=== PATIENT | male | born 1970 | race Two or more races ===

== ENCOUNTER → 2022-11-13 09:18 | Outpatient (REF) | payer OTHER, SELFPAY ==
--- NOTE | ~2022-11-13 | NM_ITS ---
Exercise Myocardial perfusion study Indication: Abnormal EKG to evaluate for myocardial ischemia Technique: The patient was brought in for an exercise perfusion study on 11/13/2022. Patient performed exercise as per Quirino protocol and was injected 30 mCi of sestamibi was given intravenously one target HR was achieved. Images were obtained using the SPECT gamma camera interlaced with the gating device. Images were obtained in supine position. Resting perfusion study was performed on 11/15/2022. Patient was administered 30 mCi of sestamibi intravenously at rest. Images were then obtained in supine position. Images obtained with and without CT attenuation. Total DLP 120 mGy-cm. Images were processed with the software and compared side to side in short axis, horizontal long axis and vertical long axis views. Findings: The stress perfusion study showed non attenuated images show moderately reduced uptake in the apex and inferoapical wall of the LV myocardium as well as mild thinning and reduced uptake in the entire inferior wall as well as basal and mid inferolateral and basal lateral wall of the LV myocardium. Attenuation corrected images show severely reduced uptake in the apex extending into the adjacent septum and the lateral wall of the LV myocardium. The gated study shows normal LV systolic function with calculated LVEF of 55%. LV cavity is normal in size. The gated study shows normal systolic wall thickening and contraction of all segments. There is no transient ischemic dilation. Resting study shows non attenuated images show mildly reduced uptake in the inferior wall of the LV myocardium. However there is intense uptake in the apex both on attenuated as well as non attenuated corrected images. Attenuated corrected images show normal uptake in all segments of LV myocardium.. Gating at rest reveals normal systolic wall motion with ejection fraction at 57%. The findings are consistent with moderate to severe intensity apical ischemia. NM/NM monster perf SPECT rest & str Impression: 1. Apical ischemia versus possibility of apical hypertrophic cardiomyopathy 2. Gated LVEF is 55% 3. Transient ischemic dilatation not present Stress EKG is negative for ischemia
--- NOTE | 2022-11-13 09:25 | CA_ITS ---
Acquisition Time: 2022-11-13 10:21:36 Total Exercise Time: 00:09:28 Test Indications: ABNORMAL EKG, ATYPICAL CHEST PA Medications: Protocol: JOANNE Max HR: 153 BPM 91% of Pred: 168 BPM Max BP: 138/084 mmHG Max Work Load: 10.8 METS Exercise stress test exercise 9 min 28 sec of Joanne procotol achieving 91% MPHR, with mild SOB, no chest discomfort, with ventricular bigeminy in recovery, with blunted BPs baseline 130/82 max BP 138/84, without EKG changes with baseline abnormalities. Nuclear images pending. Test reviewed with Dr. Tolbert. Referred By: Thomas Johnson Overread By: Neetu Fowler
== END ==
LOC: HO.CARD 09:18
PROVIDERS: Visit Provider Family Medicine
DX: R94.31 Abnormal electrocardiogram [ECG] [EKG] (principal)
CPT/HCPCS: 78452; 93017; A9500

== ENCOUNTER → 2022-11-13 09:25 | Outpatient (BNV) | payer OTHER, SELFPAY | PROVIDERS: Visit Provider Nurse Practitioner | DX: R06.02 Shortness of breath (principal); R94.31 Abnormal electrocardiogram [ECG] [EKG] | CPT/HCPCS: 78452; 93016; 93018 ==

== ENCOUNTER → 2022-11-21 07:46 | Outpatient (REF) | payer OTHER, SELFPAY ==
--- NOTE | 2022-11-21 07:51 | CA_ITS ---
Transthoracic Echocardiogram Patient (Last, First, Middle): Domo Millan, Gender: Male Date of : 1970 Age: 52 Procedure Date: 11/21/2022 Procedure Type: Transthoracic Echocardiogram Location: OP Height: 165.1 cm Weight: 88.45 kg BSA: 1.96 m2 Heart Rate: bpm BP: 120 / 80 mmHg Sieve Repairer: RACH/FIORDALIZA Referring MD: Thomas Johnson MD Symptoms: R94.31 ABN EKG, ANTEROLATERAL ISCHEMIA MILD LVH Study Quality: Adequate with contrast ECG Rhythm: Sinus Conclusions: - The left ventricular systolic function is normal. The calculated ejection fraction is 64% by biplane method. - Pattern of left ventricular hypertrophy suggestive of apical hypertrophic cardiomyopathy. - No obvious valvular pathology seen on this study. Findings Procedure Information Contrast agent, definity, is being given per protocol without apparent complications. Left Ventricle Normal left ventricular cavity size. The left ventricular systolic function is normal. The calculated ejection fraction is 64% by biplane method. There is no evidence of regional wall motion abnormalities. Evidence suggests grade I (mild) diastolic dysfunction. Pattern of left ventricular hypertrophy suggestive of apical hypertrophic cardiomyopathy. Atria The left atrium is mildly dilated. The right atrium is normal in size. Aortic Valve There is a normal trileaflet aortic valve. There is no aortic valve stenosis. There is no aortic valve regurgitation. Mitral Valve The mitral valve appears normal. There is no mitral valve regurgitation. There is no mitral valve stenosis. Pulmonic Valve The pulmonic valve is likely normal. Tricuspid Valve There is trace tricuspid valve regurgitation. There is no evidence of pulmonary hypertension. Great Vessels The asc aorta and aortic arch are normal in size. Venous The inferior vena cava is mildly dilated and collapses greater than 50% with inspiration. Pericardium/Pleural There is no evidence of pericardial effusion. Prior Study Comparison No prior study available for comparison. Recommendations, Care & Conclusions No obvious valvular pathology seen on this study. Measurements 2D Linear Measurements IVSd: 1.00 0.6-0.9/0.6-1.0 cm LVIDd: 5.33 3.9-5.3/4.2-5.9 cm LVIDd Index: 2.72 2.4-3.2/2.2-3.1 cm/m2 LVIDs: 2.93 2.0-3.6 cm LVPWd: 1.14 0.7-1.1 cm LA Diam: 4.10 2.7-3.8/3.0-4.0 cm LAIDs Index: 2.09 1.5-2.3 cm/m2 LV Mass: 276.03 67-162/88-224 g LV Mass Index: 140.83 43-95/49-115 g/m2 LVOT Diam: 2.00 3.0+(-)1.3 cm 2D Systolic Function EF 4C: 66.40 >55% EF 2C: 62.40 >55% EF BiP: 64.10 >55% Mitral Valve MV Pk E: 0.81 MV PK A: 0.71 MV Decel Time: 218.00 E/A: 1.10 E'Lateral: 8.16 E'Medial: 4.13 E/E' Med: 19.60 E/E' Lat: 9.90 PHT: 64.00 MVA PHT: 3.44 Decel Crosby: 3.71 Aortic Valve AoV Pk Harvey: 1.71 AoV Mn Harvey: 1.12 AoV VTI: 0.35 AoV Pk Grad: 12.00 Aov Mn Grad: 6.00 DONATO Cont.VTI: 2.26 LVOT LVOT Pk Harvey: 1.26 LVOT Mn Harvey: 0.73 LVOT VTI: 0.25 LVOT Pk Grad: 6.00 LVOT Mn Grad: 3.00 LVOT Diam: 2.00 LVOT Area: 3.14 Diastolic Function MV Pk E: 0.81 MV Pk A: 0.71 E/A: 1.10 E'Medial: 4.13 E/E' Med: 19.60 E' Laterial: 8.16 E/E' Lat: 9.90 Right Ventricle TAPSE (mm): 23.30 TVS' Harvey: 10.80 Tricuspid Valve TR Pk Harvey: 2.16 TR Pk Grad: 19.00 RA Press: 8.00 RVSP: 27.00 Great Vessels Aorta Sinus of Valsalva: 3.30 2.0-3.[address] Ridge: 2.81 1.7-3.4 cm Ao Asc: 3.50 2.1-3.4 cm Ao Arch: 3.20 Updated in Other Vendor System with Status of Final Faisal Tolbert MD electronically signed on 11/21/2022 2:39:50 PM with status of Final
== END ==
LOC: HO.CARD 07:46
PROVIDERS: Visit Provider Family Medicine
DX: R94.31 Abnormal electrocardiogram [ECG] [EKG] (principal)
CPT/HCPCS: 93306; Q9957

== ENCOUNTER → 2022-11-21 07:51 | Outpatient (BNV) | payer OTHER, SELFPAY | PROVIDERS: Visit Provider Internal Medicine | DX: R94.31 Abnormal electrocardiogram [ECG] [EKG] (principal) | CPT/HCPCS: 93306 ==

== ENCOUNTER 2022-11-30 13:12 | Outpatient (AMB) | payer OTHER, SELFPAY ==
--- NOTE | 2022-11-30 13:14 | MHC.OFFVIS ---
Intake Vital Signs 11/30/22 13:15 Height 5 ft 5 in Weight 204 lb 9.423 oz BMI 34.0 BP 149/84 H Blood Pressure Location Lt brachial Position Sitting Respiration 16 Pulse 62 Pulse Source Pulse Oximeter Pulse Oximetry (%) 98 Oxygen Delivery Method Room Air Intake Visit Reasons: NPV/abnormal echo/NNeelima Godinez Intake Note: New patient with EKG Allergies No Known Allergies Allergy (Verified 11/30/22 13:18) Medication List - Last Reconciled 11/30/22 by Faisal Tolbert MD No Known Home Meds HPI HPI Comments History of Present Illness Details Georges is here for consultation regarding a recent abnormal echocardiogram and stress test. According to patient, he actually had to go for colonoscopy and at that time was told to have an abnormal EKG. It seems that that led to a stress test. During the stress test he had no issues during the exercise part. However, in the perfusion imaging thought to be either apical ischemia or hypertrophic cardiomyopathy. Following this, he had an echocardiogram that shows apical hypertrophic cardiomyopathy. Patient himself does not really have any specific symptoms. He works in [employer] and he states there are no limitations whatsoever. Sometimes he may feel fluttering sensation in the heart when he is trying to sit up or stand up. That is transient for a few seconds and then gets better. No family history of anything in this regard although he does not know too much. He thinks his father of heart issues but does not know anything further. He has siblings and children but they do not have anything known from cardiac either. [facility] Family History Father Heart problem Mother Liver problem Social History Alcohol intake: current Alcohol intake frequency: holidays/special occasions only Patient Tobacco Use Status: Never used Tobacco Review of Systems Const All systems reviewed & are unremarkable except as noted in HPI and below Reports as per HPI and Reports no additional complaints Eyes Reports as per HPI and Denies no additional complaints ENT Denies no additional complaints and Reports as per HPI Card Reports as per HPI, Reports no additional complaints, Denies acrocyanosis, Denies chest pain, Denies leg edema, Denies lightheadedness, Denies palpitations and Denies dyspnea Resp Reports as per HPI, Denies no additional complaints and Denies dyspnea GI Reports as per HPI and Denies no additional complaints Reports no additional complaints and Reports as per HPI Musc Reports no additional complaints and Reports as per HPI Skin/Breast Reports system reviewed and no additional complaints, except as documented Neuro Reports no additional complaints and Reports as per HPI Psych Reports no additional complaints and Reports as per HPI Endo Reports no additional complaints, Reports as per HPI and Denies palpitations Edis/Lymph Reports no additional complaints and Reports as per HPI Aller/Immun Reports no additional complaints and Reports as per HPI Physical Exam Vital Signs: Last Vital Signs Pulse 62 11/30/22 13:15 Resp 16 11/30/22 13:15 BP 149/84 H 11/30/22 13:15 Pulse Ox 98 11/30/22 13:15 Oxygen Delivery Method Room Air 11/30/22 13:15 BMI result Body Mass Index 34.0 Const General: comfortable and no acute distress Orientation/consciousness: patient oriented x3 HEENT Other: Unremarkable Head: Yes normal to inspection Neck Neck: Yes normal visual inspection Chest Chest palpation & inspection: normal inspection of the chest Resp Auscultation: clear to auscultation bilaterally Cardio Palpation: normal PMI Heart sounds: S1 normal heart sound present, S2 normal heart sound present, no gallops, no murmurs and no rubs GI Palpation (GI): Soft to palpation Back/Spine/Pelvis Other: unremarkable Skin General skin exam: no rashes or lesions noted Neuro General: patient oriented x3 Extrem General: Yes normal to inspection Psych Mental Status: mental status grossly normal Office Procedures EKG Details: EKG with sinus rhythm at 63/Min; inverted T-waves in V4 to V6 as well as lead 1 aVL. [id number], Complete Assessment & Plan Assessment & Plan (1) Apical variant hypertrophic cardiomyopathy: Code(s): I42.2 - Other hypertrophic cardiomyopathy Plan In the exercise stress test, able to do 10.8 METS with mild shortness of breath. Appropriate blood pressure response. In the perfusion component, thought to have had a either apical ischemia or apical hypertrophic cardiomyopathy. In the echocardiogram, there is clear suggestion of apical hypertrophic cardiomyopathy. Findings discussed with patient in great detail. Clinically, he has got absolutely no symptoms from this. Hence no specific management or medications needed. Will need to get a Holter to look for ventricular ectopy/arrhythmias. Will also get cardiac MRI for any delayed enhancement/patterns of fibrosis. Otherwise, family screening of siblings and children. Discussed. Blood pressure is slightly high but not a known hypertensive. He states home blood pressures are in the 130s and some 140s. Could have borderline hypertension. To be followed. Follow-up once these are completed. Orders: Orders ECG 3 day holter monitor Today I42.2 - Other hypertrophic cardiomyopathy, R00.2 - Palpitations MR cardiac morph fnct w con Today I42.2 - Other hypertrophic cardiomyopathy Coding Level of Care Code New Pt Level 4 (78901) Diagnoses Apical variant hypertrophic cardiomyopathy I42.2 CPT Codes EKG - CPT: 85838-[id number], Complete ([id number])
[2022-11-30 13:15] VITALS: BP 149/84; PULSE 62; RESP 16; O2SAT 98; BMI 34.0
== END 2022-11-30 13:37 | disposition home or self-care (01) ==
PROVIDERS: Visit Provider Internal Medicine
DX: I42.2 Other hypertrophic cardiomyopathy (principal)
CPT/HCPCS: 93010; 99214

== ENCOUNTER → 2022-11-30 13:12 | Outpatient (BNVA) | payer OTHER, SELFPAY | PROVIDERS: Visit Provider Internal Medicine | DX: I42.2 Other hypertrophic cardiomyopathy (principal) | CPT/HCPCS: 93005; 99212 ==

== ENCOUNTER → 2022-12-14 07:44 | Outpatient (REF) | payer OTHER, SELFPAY ==
--- NOTE | 2022-12-14 07:48 | HM_ITS ---
* Total monitoring time 3 days. * Underlying rhythm is sinus. Average ventricular rate 71/Min. Range 43 to 119/Min. * Very rare supraventricular and ventricular ectopy with minimal burden. * No significant pauses or AV blocks. * Symptoms in patient diary including palpitations, left arm pain, shortness of breath correlates with sinus rhythm and mild sinus tachycardia. MTDD
== END ==
LOC: HO.CARD 07:44
PROVIDERS: Visit Provider Internal Medicine
DX: R00.2 Palpitations (principal); I42.2 Other hypertrophic cardiomyopathy
CPT/HCPCS: 93242

== ENCOUNTER → 2022-12-14 07:48 | Outpatient (BNV) | payer OTHER, SELFPAY | PROVIDERS: Visit Provider Internal Medicine | DX: I47.10 Supraventricular tachycardia, unspecified (principal) | CPT/HCPCS: 93244 ==

== ENCOUNTER 2023-03-28 14:54 | Outpatient (REF) | payer OTHER, SELFPAY ==
[2023-03-28 16:15] LABS: Anion Gap 13 (12-20); Blood Urea Nitrogen 14 mg/dL (9-16); Carbon Dioxide 30 mmol/L (22-29); Chloride 101 mmol/L (96-108); Estimated Glomerular Filt Rate > 60; Glucose Random 123 mg/dL (60-115); Potassium 4.4 mmol/L (3.3-5.1); Sodium 140 mmol/L (135-145)
== END 2023-03-28 14:55 | disposition home or self-care (01) ==
LOC: HO.LAB 14:54
PROVIDERS: Visit Provider Internal Medicine
DX: I42.2 Other hypertrophic cardiomyopathy (principal)
CPT/HCPCS: 36415; 80048

== ENCOUNTER 2023-04-17 09:17 | Outpatient (AMB) | payer OTHER, SELFPAY ==
[2023-04-17 09:22] VITALS: BP 128/70; PULSE 68; BMI 34.1
--- NOTE | 2023-04-17 09:22 | MHC.OFFVIS ---
Intake Vital Signs 04/17/23 09:22 Height 5 ft 5 in Weight 205 lb 0.478 oz BMI 34.1 BP 128/70 Blood Pressure Location Lt brachial Position Sitting Pulse 68 Intake Visit Reasons: followup after cardiac mri Intake Note: follow up Executive Administrative Assistant Required: Yes Executive Administrative Assistant Language: Aircraft Loadmaster Superintendent Name: Caren [id number] Accompanied by: Self / Same As Patient Allergies No Known Allergies Allergy (Verified 04/17/23 09:22) Medication List - Last Reconciled 04/17/23 by Faisal Tolbert MD No Known Home Meds HPI HPI Comments History of Present Illness Details Georges returns for follow-up. Recently seen in consultation regarding abnormal echocardiogram/stress test. He had to go for colonoscopy and at that time told to have an abnormal EKG. That led to stress test and then an echocardiogram. Overall, generally feels okay but sometimes he can get short of breath with activity. Otherwise, for the most part he is feeling fine. No family history of anything in this regard although he does not know too much. He thinks his father of heart issues but does not know anything further. He has siblings and children but they do not have anything known from cardiac either. [facility] Family History Father Heart problem Mother Liver problem Social History Alcohol intake: current Alcohol intake frequency: holidays/special occasions only Patient Tobacco Use Status: Never used Tobacco Review of Systems Const All systems reviewed & are unremarkable except as noted in HPI and below Reports as per HPI and Reports no additional complaints Eyes Reports as per HPI and Denies no additional complaints ENT Denies no additional complaints and Reports as per HPI Card Reports as per HPI, Reports no additional complaints, Denies acrocyanosis, Denies chest pain, Denies leg edema, Denies lightheadedness, Denies palpitations and Denies dyspnea Resp Reports as per HPI, Denies no additional complaints and Denies dyspnea GI Reports as per HPI and Denies no additional complaints Reports no additional complaints and Reports as per HPI Musc Reports no additional complaints and Reports as per HPI Skin/Breast Reports system reviewed and no additional complaints, except as documented Neuro Reports no additional complaints and Reports as per HPI Psych Reports no additional complaints and Reports as per HPI Endo Reports no additional complaints, Reports as per HPI and Denies palpitations Edis/Lymph Reports no additional complaints and Reports as per HPI Aller/Immun Reports no additional complaints and Reports as per HPI Physical Exam Vital Signs: Last Vital Signs Pulse 68 04/17/23 09:22 BP 128/70 04/17/23 09:22 BMI result Body Mass Index 34.1 Const General: comfortable and no acute distress Orientation/consciousness: patient oriented x3 HEENT Other: Unremarkable Head: Yes normal to inspection Neck Neck: Yes normal visual inspection Chest Chest palpation & inspection: normal inspection of the chest Resp Auscultation: clear to auscultation bilaterally Cardio Palpation: normal PMI Heart sounds: S1 normal heart sound present, S2 normal heart sound present, no gallops, no murmurs and no rubs GI Palpation (GI): Soft to palpation Back/Spine/Pelvis Other: unremarkable Skin General skin exam: no rashes or lesions noted Neuro General: patient oriented x3 Extrem General: Yes normal to inspection Psych Mental Status: mental status grossly normal Assessment & Plan Assessment & Plan (1) Apical variant hypertrophic cardiomyopathy: Code(s): I42.2 - Other hypertrophic cardiomyopathy Plan Cardiac studies reviewed. EKG with sinus rhythm at 63/Min; inverted T-waves in V4 to V6 as well as lead 1 aVL. In the exercise stress test, able to do 10.8 METS with mild shortness of breath. Appropriate blood pressure response. In the perfusion component, thought to have had a either apical ischemia or apical hypertrophic cardiomyopathy. In the echocardiogram, there is clear suggestion of apical hypertrophic cardiomyopathy. In the cardiac MRI, apical segments severely thickened to 2 cm; basal interventricular septum moderately thickened to 1.5 cm. Severely increased total myocardial mass. LVEF 61% RVEF 60%. Significant delayed enhancement a 28%. Holter shows underlying sinus rhythm with an average rate of 71/Min. No significant ectopy or other arrhythmias. Findings discussed with patient. Possibly some shortness of breath with severe exertion, but no other overt symptoms. Otherwise, discussed family screening of his children and first-degree relatives. Will send him to [facility] hypertrophic cardiomyopathy center for further assessment. Follow-up after that visit. Coding Level of Care Code Est Pt Level 4 (93399) Diagnoses Apical variant hypertrophic cardiomyopathy I42.2
== END 2023-04-17 10:03 | disposition home or self-care (01) ==
PROVIDERS: PCP Physician Assistant; Visit Provider Internal Medicine
DX: I42.2 Other hypertrophic cardiomyopathy (principal)
CPT/HCPCS: 99214

== ENCOUNTER → 2023-04-17 09:17 | Outpatient (BNVA) | payer OTHER, SELFPAY | PROVIDERS: Visit Provider Internal Medicine | DX: I42.2 Other hypertrophic cardiomyopathy (principal) | CPT/HCPCS: 99212 ==

== ENCOUNTER 2023-08-14 14:21 | Outpatient (AMB) | payer OTHER, SELFPAY ==
[2023-08-14 14:36] VITALS: BP 130/64; PULSE 69; BMI 34.0
--- NOTE | 2023-08-14 14:36 | MHC.OFFVIS ---
Vital Signs 08/14/23 14:36 Height 5 ft 5 in Weight 204 lb 2.369 oz BMI 34.0 BP 130/64 Blood Pressure Location Lt brachial Position Sitting Pulse 69 Pulse Source Pulse Oximeter Intake Visit Reasons: f/up Dr Baldwin visit Hydroelectric Systems Technician Required: Yes Hydroelectric Systems Technician Name: toshia/izabela Accompanied by: Self / Same As Patient Allergies No Known Allergies Allergy (Verified 04/17/23 09:22) Medication List - Last Reconciled 08/14/23 by Faisal Tolbert MD No Known Home Meds HPI Comments Details: Georges returns for follow-up. Originally seen in consultation regarding abnormal echocardiogram/stress test. He had to go for colonoscopy and at that time told to have an abnormal EKG. That led to stress test and then an echocardiogram. Overall, generally feels okay but sometimes he can get short of breath with activity. Otherwise, for the most part he is feeling fine. No family history of anything in this regard although he does not know too much. He thinks his father of heart issues but does not know anything further. He has siblings and children but they do not have anything known from cardiac either. Overall, no new concerns since last seen. He is awaiting hypertrophic cardiomyopathy clinic appointment at [facility]. [facility] Family History Father Heart problem Mother Liver problem Social History Alcohol intake: current Alcohol intake frequency: holidays/special occasions only Patient Tobacco Use Status: Never used Tobacco Review of Systems Const Denies chills, Denies fatigue, Denies fever(s), Denies frequent falls, Denies weakness, Denies weight gain and Denies weight loss ENT Denies dizziness Card Denies chest pain, Denies leg edema, Denies lightheadedness, Denies palpitations, Denies dyspnea and Denies dyspnea on exertion Resp Denies cough, Denies dyspnea and Denies dyspnea on exertion GI Denies hematochezia Musc Denies abnormal gait, Denies muscle weakness, Denies numbness, Denies radiating pain into limb and Denies tingling Neuro Denies abnormal gait, Denies dizziness, Denies frequent falls, Denies numbness, Denies tingling and Denies weakness Endo Denies fatigue and Denies palpitations Physical Exam Vital Signs: Last Vital Signs Pulse 69 08/14/23 14:36 BP 130/64 08/14/23 14:36 BMI result Body Mass Index 34.0 Const General: comfortable and no acute distress Orientation/consciousness: patient oriented x3 HEENT Other: Unremarkable Head: Yes normal to inspection Neck Neck: Yes normal visual inspection Chest Chest palpation & inspection: normal inspection of the chest Resp Auscultation: clear to auscultation bilaterally Cardio Palpation: normal PMI Heart sounds: S1 normal heart sound present, S2 normal heart sound present, no gallops, no murmurs and no rubs GI Palpation (GI): Soft to palpation Back/Spine/Pelvis Other: unremarkable Skin General skin exam: no rashes or lesions noted Neuro General: patient oriented x3 Extrem General: Yes normal to inspection Psych Mental Status: mental status grossly normal Assessment & Plan Assessment & Plan (1) Apical variant hypertrophic cardiomyopathy: Code(s): I42.2 - Other hypertrophic cardiomyopathy Category: Medical Plan Cardiac studies reviewed. EKG with sinus rhythm at 63/Min; inverted T-waves in V4 to V6 as well as lead 1 aVL. In the exercise stress test, able to do 10.8 METS with mild shortness of breath. Appropriate blood pressure response. In the perfusion component, thought to have had either apical ischemia or apical hypertrophic cardiomyopathy. In the echocardiogram, there is clear suggestion of apical hypertrophic cardiomyopathy. In the cardiac MRI, apical segments severely thickened to 2 cm; basal interventricular septum moderately thickened to 1.5 cm. Severely increased total myocardial mass. LVEF 61% RVEF 60%. Significant delayed enhancement a 28%. Holter shows underlying sinus rhythm with an average rate of 71/Min. No significant ectopy or other arrhythmias. Overall, consistent with apical variant hypertrophic cardiomyopathy. Clinically, no concerns at this time. Family screening discussed in the past. He is awaiting appointment at the [facility]. Will get those recommendations after that. Follow-up in 6 months. Coding Level of Care Code Est Pt Level 4 (44591) Diagnoses Apical variant hypertrophic cardiomyopathy I42.2
== END 2023-08-14 15:25 | disposition home or self-care (01) ==
PROVIDERS: PCP Physician Assistant; Visit Provider Internal Medicine
DX: I42.2 Other hypertrophic cardiomyopathy (principal)
CPT/HCPCS: 99214

== ENCOUNTER → 2023-08-14 14:21 | Outpatient (BNVA) | payer OTHER, SELFPAY | PROVIDERS: PCP Physician Assistant; Visit Provider Internal Medicine | DX: I42.2 Other hypertrophic cardiomyopathy (principal) | CPT/HCPCS: 99212 ==

== ENCOUNTER 2024-02-05 12:34 | Outpatient (AMB) | payer OTHER, SELFPAY ==
--- NOTE | 2024-02-05 12:35 | MHC.OFFVIS ---
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 He originally had an EKG for preop colonoscopy which was abnormal. That led to an echocardiogram/stress test with the eventual diagnosis of apical hypertrophic cardiomyopathy. With extreme activity, he can get some shortness of breath but otherwise fine for the most part. Otherwise, he states he feels fine. Recently saw specialist in [place] for the same. With regard to family history, son was apparently diagnosed as Chagas disease in [facility] but it seems that he might actually have a similar problem but not very clear. He also underwent genetic testing at [place] and we had to get those results. [facility] Family History Father Heart problem Mother Liver problem Social History Alcohol intake: current Alcohol intake frequency: holidays/special occasions only Patient Tobacco Use Status: Never used Tobacco Review of Systems Const Denies chills, Denies fatigue, Denies fever(s), Denies frequent falls, Denies weakness, Denies weight gain and Denies weight loss ENT Denies dizziness Card Denies chest pain, Denies leg edema, Denies lightheadedness, Denies palpitations, Denies dyspnea and Denies dyspnea on exertion Resp Denies cough, Denies dyspnea and Denies dyspnea on exertion GI Denies hematochezia Musc Denies abnormal gait, Denies muscle weakness, Denies numbness, Denies radiating pain into limb and Denies tingling Neuro Denies abnormal gait, Denies dizziness, Denies frequent falls, Denies numbness, Denies tingling and Denies weakness Endo Denies fatigue and Denies palpitations Physical Exam Vital Signs: Last Vital Signs Pulse 72 02/05/24 12:36 BP 130/72 02/05/24 12:36 BMI result Body Mass Index 34.3 Const General: comfortable and no acute distress Orientation/consciousness: patient oriented x3 HEENT Other: Unremarkable Head: Yes normal to inspection Neck Neck: Yes normal visual inspection Chest Chest palpation & inspection: normal inspection of the chest Resp Auscultation: clear to auscultation bilaterally Cardio Palpation: normal PMI Heart sounds: S1 normal heart sound present, S2 normal heart sound present, no gallops, no murmurs and no rubs GI Palpation (GI): Soft to palpation Back/Spine/Pelvis Other: unremarkable Skin General skin exam: no rashes or lesions noted Neuro General: patient oriented x3 Extrem General: Yes normal to inspection Psych Mental Status: mental status grossly normal Office Procedures EKG Details: EKG with underlying sinus rhythm at 72/Min; left ventricular hypertrophy with repolarization changes [id number], Complete Assessment & Plan Assessment & Plan (1) Apical variant hypertrophic cardiomyopathy: Code(s): I42.2 - Other hypertrophic cardiomyopathy Category: Medical Plan Cardiac studies reviewed. EKG as described above. In the exercise stress test, able to do 10.8 METS with mild shortness of breath. Appropriate blood pressure response. In the perfusion component, thought to have had either apical ischemia or apical hypertrophic cardiomyopathy. In the echocardiogram, there is clear suggestion of apical hypertrophic cardiomyopathy. In the cardiac MRI, apical segments severely thickened to 2 cm; basal interventricular septum moderately thickened to 1.5 cm. Severely increased total myocardial mass. LVEF 61% RVEF 60%. Significant delayed enhancement reported at 28%. However, per specialists notes, LGE was recalculated as to be only about 7%. Holter shows underlying sinus rhythm with an average rate of 71/Min. No significant ectopy or other arrhythmias. Overall, apical variant hypertrophic cardiomyopathy. No overt clinical symptoms. Will need to get the genetics testing that he has had at [place]. No indication for ICD at this time. We will check him in about 6 months' time with a Holter monitor for any NSVT. Total time spent including review of data, counseling, documentation, coordination of care-32 minutes. Orders: Orders ECG 3 day holter monitor 6 Months I42.2 - Other hypertrophic cardiomyopathy Coding Level of Care Code Est Pt Level 4 (95861) Diagnoses Apical variant hypertrophic cardiomyopathy I42.2 CPT Codes EKG - CPT: 52546-[id number], Complete ([id number])
[2024-02-05 12:36] VITALS: BP 130/72; PULSE 72; BMI 34.3
== END 2024-02-05 13:09 | disposition home or self-care (01) ==
PROVIDERS: PCP Physician Assistant; Visit Provider Internal Medicine
DX: I42.2 Other hypertrophic cardiomyopathy (principal)
CPT/HCPCS: 93010; 99214

== ENCOUNTER → 2024-02-05 12:34 | Outpatient (BNVA) | payer OTHER, SELFPAY | PROVIDERS: PCP Physician Assistant; Visit Provider Internal Medicine | DX: I42.2 Other hypertrophic cardiomyopathy (principal) | CPT/HCPCS: 93005; 99212 ==

== ENCOUNTER → 2024-08-04 07:36 | Outpatient (REF) | payer OTHER, SELFPAY ==
--- OUTSIDE RECORDS SUMMARY | 2024-08-04 07:39 | XMS_ITS | Data Portability ---
Author Organization [facility], , [facility] Address [address] [place] [address] Care Team Providers Care Route Inspector Name Role Phone [facility] Mammographer MICHAEL MONTE Primary Care Provider Unavailabl e Assessment No assessment recorded. Plan of Treatment Reminders Order Date Submit Date Provider Last Modified By Organization Details Last Modified Time Details Appointments None recorded. Lab hepatitis A Ab panel 2023 024 [facility], [address] [place] [address], [id number], 4 13:08:08 hepatitis B surface Ab, quantitat lindsey, serum 2023 024 [facility], [address] [place] [address], [id number], 4 13:08:10 lipid panel, serum 2023 024 [facility], [address] [place] [address], [address], 4 13:29:25 hepatitis C Ab, serum [facility] [address] [place], [address], 4 13:41:01 Referral gastroent erologist referral - fatty liver, fam hx of cirrhosis from [facility] 2023 024 [facility], [address] [place], [address], 4 14:13:03 Procedures None recorded. Surgeries None recorded. Imaging None recorded. Medication Orders None recorded. Patient TargetsNo targets recorded. 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 METAB OLIC PANEL glucose 88 mg/dL 70-100 Not Available [address], [address], 05/25/2023 13:29:24 05/25/19 24 05/25/2023 COMP. METAB OLIC PANEL BUN 15 mg/dL 7-18 Not Available [address], [address], 05/25/2023 13:29:24 05/25/19 24 05/25/2023 COMP. METAB OLIC PANEL creatinine 0.9 mg/dL 0.8-1. 3 Not Available [address], [address], 05/25/2023 13:29:24 05/25/19 24 05/25/2023 COMP. METAB OLIC PANEL B/C 16.7 ratio Not Available [address], [address], 05/25/2023 13:29:24 05/25/19 24 05/25/2023 COMP. METAB OLIC PANEL GFR >=60ML /MIN mL/mi n normal >=60m L/min - Danni l or midly reduc ed <60mL /min- Decre ased kidne y funct ion <15mL /min - Kidne y failu re [facility] calcu lates estim ated Glome rular Filtr ation Rate (eGFR ) using the Chron ic Kidne y Disea se Epide miolo gy Colla borat ion (CKD- EPI) Equat ion (Linnette r et. al 2020) as recom josefina d by the Natio nal Kidne y Found ation . eGFR is based on age, serum creat inine , and sex. CKD-E PI does not calcu late eGFR by race, does not apply to child constantine (age <18 years ), and shoul d not be used in pregn wilfred. Not Available [address], [address], 05/25/2023 13:29:24 05/25/19 24 05/25/2023 COMP. METAB OLIC PANEL sodium 142 mmol/ L 136-14 5 Not Available [address], [address], 05/25/2023 13:29:24 05/25/19 24 05/25/2023 COMP. METAB OLIC PANEL potassium 4.7 mmol/ L 3.5-5. 1 Not Available [address], [address], 05/25/2023 13:29:24 05/25/19 24 05/25/2023 COMP. METAB OLIC PANEL chloride 103 mmol/ L 96-107 Not Available [address], [address], 05/25/2023 13:29:24 05/25/19 24 05/25/2023 COMP. METAB OLIC PANEL anion gap 8.1 5.0-15 .0 Not Available [address], [address], 05/25/2023 13:29:24 05/25/19 24 05/25/2023 COMP. METAB OLIC PANEL CO2 31 mmol/ L 21-32 Not Available [address], [address], 05/25/2023 13:29:24 05/25/19 24 05/25/2023 COMP. METAB OLIC PANEL calcium 8.7 mg/dL 8.5-10 .3 Not Available [address], [address], 05/25/2023 13:29:24 05/25/19 24 05/25/2023 COMP. METAB OLIC PANEL total protein 7.2 g/dL 6.4-8. 2 Not Available [address], [address], 05/25/2023 13:29:24 05/25/19 24 05/25/2023 COMP. METAB OLIC PANEL albumin 4.2 g/dL 3.4-5. 0 Not Available [address], [address], 05/25/2023 13:29:24 05/25/19 24 05/25/2023 COMP. METAB OLIC PANEL globulin 3.0 g/dL Not Available [address], [address], 05/25/2023 13:29:24 05/25/19 24 05/25/2023 COMP. METAB OLIC PANEL A/G 1.4 ratio 0.8-2. 0 Not Available [address], [address], 05/25/2023 13:29:24 05/25/19 24 05/25/2023 COMP. METAB OLIC PANEL total bilirubin 1.10 mg/dL 0.00-1 .00 high Not Available [address], [address], 05/25/2023 13:29:24 05/25/19 24 05/25/2023 COMP. METAB OLIC PANEL AST 56 U/L 0-37 high Not Available [address], [address], 05/25/2023 13:29:24 05/25/19 24 05/25/2023 COMP. METAB OLIC PANEL ALT 135 U/L 6-63 high Not Available [address], [address], 05/25/2023 13:29:24 05/25/19 24 05/25/2023 COMP. METAB OLIC PANEL alk. phos. 67 U/L 50-136 Not Available [address], [address], 05/25/2023 13:29:24 05/25/19 24 05/25/2023 LIPID PANEL cholesterol 186 mg/dL <200 mg/dl Sho able 200-2 39 mg/dl Borde rline High >240 mg/dl High Not Available [address], [address], 05/25/2023 13:29:25 05/25/19 24 05/25/2023 LIPID PANEL triglyceride s 101 mg/dL <150 mg/dL Danni l 150-1 99 mg/dL Borde rline High 200-4 99 mg/dL High >500 mg/dL Very High Not Available [address], [address], 05/25/2023 13:29:25 05/25/19 24 05/25/2023 LIPID PANEL direct HDL 45 mg/dL <40 mg/dl - Major Risk for CHD >60 mg/dl - Negat lindsey Risk for CHD Not Available [address], [address], 05/25/2023 13:29:25 05/25/19 24 05/25/2023 LDL - CALCU LATED LDL - calculated 120.8 RISK CATEG ORY LDL GOAL _ CHD or CHD Risk Equiv alent s <100 mg/dl (10-y ear risk >20%) 2+ Risk Facto rs <130 mg/dl (10-y ear risk <= 20%) 0-1 Risk Facto r? <160 mg/dl ? Almos t all peopl e with 0-1 risk facto r have a 10 year risk <10%, thus 10 year risk asses ment in peopl e with 0-1 risk facto r is not nectonya yessenia. Not Available [address], [place], [address], 05/25/2023 13:29:26 05/25/19 24 05/26/2023 HEPAT ITIS C AB W/REF L TO HCV RNA, QN, PCR hepatitis C antibody NON-RE ACTIVE non-re active normal HCV antib samia was non-r eacti ve. There is no labor atory evide nce of HCV infec tion. In most cases , no furth er actio n is requi red. Howev er, if recen t HCV expos ure is suspe cted, a test for HCV RNA (test code 12312 ) is sugge sted. For addit ional infor mattammy n lauren e refer to http: //[employer] cat n.que stdia gnost ics.c om/fa q/FAQ 22v1 (This link is being provi ded for infor matio nal/ educa david l purpo ses only. ) Not Available [facility] [address], [address], 05/26/2023 04:48:42 07/23/19 24 07/24/2023 HEPAT ITIS A AB, TOTAL hepatitis A Ab, total REACTI VE non-re active abnormal For addit ional infor lauren singh e refer to http: //[employer] cattammy n.que stdia gnost ics.c om/fa q/FAQ 202 (This link is being provi ded for infor matio nal/ educa david l purpo ses only. ) Not Available [facility] [address], [address], 07/24/2023 13:08:08 07/23/19 24 07/24/2023 HEPAT ITIS B SURFA CE AB IMMUN ITY, QN hepatitis B surface Ab immunity, qn <5 mIU/m L > or = 10 low PATIE NT DOES NOT HAVE IMMUN ITY TO HEPAT ITIS B VIRUS . For addit ional infor lauren singh refer to http: //[employer]ust[employer]er gnost [employer].c om/fa q/FAQ 105 (This link is being provi ded for infor annabella ramirez/ [facility] purpo ses only) . Not Available [facility] [address], [place], [address], 07/24/2023 13:08:10 07/23/19 24 10/12/2022 colon oscop y proce dure (PROC ) No observ ation record ed. [email or web address] Not Available 2023 08:24:41 Result Notes None recorded. Problems Name Problem SNOMED Code Status Onset Date Resolution Date Notes Provider Name and Address Organization Details Recorded Time Obstruct lindsey sleep apnea syndrome 12255935 Active 2017 Octaviano Flores PA-C [address] [place] [address], [address] , [facility] 8 08:49:22 Hypertro phic cardiomy opathy 601398258 Active 2023 Cardiac MRI 04/2023, apical variant Funmi Corona PA-C [address] [place] [address], [address] , [facility] 4 08:03:28 Obesity 978054802 Active 2023 Ray Bravo MD [address] [place] [address], , [facility] 4 12:07:27 Mixed hyperlip idemia 475949908 Active 2023 Ray Bravo MD [address] [place] [address], , [facility] 4 12:07:45 Metaboli c dysfunct ion-asso ciated steatohe patitis 178363997 Active 2023 Maribel Alexander MD [address] [place] [address], [address] , [facility] 4 16:22:44 Clinical finding Completed 200501/22/2013 Not Available [facility] 3 02:04:02 Gastrodu odenitis 087687796 Completed 200601/20/2015 Octaviano Flores PA-C [address] [place] [address], [address] , [facility] 5 15:51:24 Liver function tests outside referenc e range 213996960 Active 2005 Octaviano Flores PA-C [address] [place] [address], [address] , [facility] 5 16:01:36 Gastroes ophageal reflux disease 747769198 Completed 200501/20/2015 Octaviano Flores PA-C [address] [place] [address], [address] , [facility] 5 15:51:24 Abdomina l pain 59641404 Completed 200501/22/2013 Not Available [facility] 3 02:01:21 Chronic nonalcoh olic liver disease 51692933 Completed 200601/20/2015 Octaviano Flores PA-C [address] [place] [address], [address] , [facility] 5 15:51:24 Nausea and vomiting 37897839 Completed 200601/22/2013 Not Available [facility] 3 02:03:06 Elevated level of transami nase and lactic acid dehydrog enase 933353472 Completed 200501/20/2015 Octaviano Flores PA-C [address] [place] [address], [address] , [facility] 5 15:51:24 Gastriti s 0284029 Completed 200601/20/2015 Octaviano Flores PA-C [address] [place] [address], [address] , [facility] 5 15:51:24 Generali zed abdomina l pain 312155784 Completed 200601/22/2013 Not Available [facility] 3 02:02:06 Notes:[place] 10/2022 normal, re peat 10 years Problem Notes None recorded. Procedures Surgical History Date Name Laterality Status Provider Name and Address Organization Details Recorded Time 06/06/19 21077: Manual Therapy completed Rito Cordon DPT [address] [place], [address], [facility] 06/05/2022 08:26:02 06/06/19 23 Neuromuscular re-education completed Rito Cordon DPT [address] [place] [address], [address], [facility] 06/05/2022 08:26:03 06/06/19 Treatment and Advice completed Rito Cordon DPT [address] [place], [address], [facility] 06/05/2022 08:56:45 05/30/19 13036: Manual Therapy completed Rito Cordon DPT [address] [place], [address], [facility] 05/29/2022 10:25:20 05/30/19 23 Neuromuscular re-education completed Rito Cordon DPT [address] [place], [address], [facility] 05/29/2022 10:25:29 05/30/19 23 Treatment and Advice completed Rito Cordon DPT [address] [place] [address], [address], [facility] 05/29/2022 10:25:00 05/23/19 23 Smoking Cessation Counselling completed Rito Cordon DPT [address] [place], [address], [facility] 05/22/2022 09:13:18 05/23/19 23 Physical Activity Counselling completed Rito Cordon DPT [address] [place], [address], [facility] 05/22/2022 09:13:18 05/23/19 23 90135: PT Eval Low Complexity completed Rito Cordon DPT [address] [place], [address], [facility] 05/22/2022 09:13:18 05/23/19 23 Treatment and Advice completed Rito Cordon DPT [address] [place], [address], [facility] 05/22/2022 16:53:50 04/04/19 22 Skin Tag Removal (up to 15) completed Harmony Albarran PA-C [address] [place] [address], [address], [facility] 04/05/2021 10:44:22 03/24/19 21 prevention-annual alcohol misuse screening completed Georgia Quick [facility] 03/24/2020 15:05:39 02/12/20 14 Ganglion Injection completed Octaviano Flores PA-C [address] [place] [address], [address], [facility] 02/11/2014 15:39:38 Imaging Results None recorded. Procedure Notes None recorded. Medical Equipment None Reported. Allergies No known drug allergies Medications Name Sig Start Date Stop Date Status Note LastModified by Organization Details LastModified Time valacyclov ir 1 gram tablet TAKE 1 TABLET BY MOUTH EVERY 12 HOURS FOR 10 DAYS 11/09 completed Not Available Not Available Not Available doxycyclin e monohydrat e 100 mg capsule TAKE 1 CAPSULE BY MOUTH TWICE A DAY FOR 28 DAYS 01/24 completed Not Available Not Available Not Available ranitidine 150 mg tablet 2007 active Take 1.00 tabs twice daily Not Available Not Available Not Available Culturelle 10 billion cell capsule Take 1 capsule twice a day by oral route for 28 days. 01/24 completed Not Available Not Available Not Available bisacodyl 5 mg tablet,del ayed release TAKE 4 TABLETS BY MOUTH DIRECTED FOR 1 DAY 10/16 completed Not Available Not Available Not Available vitamin B complex 1 tab daily 03/24 completed Not Available Not Available Not Available ProAir HFA 90 mcg/actuat ion aerosol inhaler Inhale 2 puffs every 4-6 hours by inhalatio n route as needed. 05/16 completed Not Available Not Available Not Available GaviLyte-G 236 gram-22.74 gram-6.74 gram-5.86 gram oral solution USE DIRECTED FOR 1 DAY 12/11 completed Not Available Not Available Not Available Vitals Date Recorded Systolic blood pressure Diastolic blood pressure Provider Name and Address Organization Details Last Updated DateTime 2023 138 mm[Hg] 78 mm[Hg] Ray Bravo MD [address] [place] [address], [address], [facility] 2023 12:08:43 Date Recorded Body height Body mass index (BMI) Body weight Heart rate Oxygen saturation Oxygen saturation in Arterial blood by Pulse oximetry Systolic blood pressure Diastolic blood pressure Provider Name and Address Organization Details Last Updated DateTime 4 161.29 cm 36.4 kg/m2 18146.0 1 g 74 /min 98 % 98 % 142 mm[Hg] 76 mm[Hg] Imani Mendoza [facility] 4 11:18:15 Date Recorded Body height Body mass index (BMI) Body weight Heart rate Systolic blood pressure Diastolic blood pressure Systolic blood pressure Diastolic blood pressure Provider Name and Address Organization Details Last Updated DateTime 4 161.29 cm 35.4 kg/m2 75178.9 5 g 80 /min 138 mm[Hg] 72 mm[Hg] 130 mm[Hg] 72 mm[Hg] Zenaida Daniels [facility] 4 08:22:16 Social History Question Answer Notes LastModified by Organizat ion Details LastModified Time Tobacco Smoking Status Never Smoker 03/14/21 AG 04/13/22tt8/06/25MV Vanesa Abdi, BINTA null, [facility] 10/16/2022 08:09:35 Do You Wear A Helmet When Biking? No Information not available 01/20/2015 What Is Your Level Of Caffeine Consumption? Moderate Information not available 04/13/2022 How Much Tobacco Do You Chew? None Information not available 01/20/2015 What Type Of Diet Are You Following? REGULAR Information not available 05/20/2018 Education 12 Information no t available 04/24/2012 Have There Been Any Changes To Your Family Or Social Situation? No Information not available 04/13/2022 How Many Days In The Past Year Have You Had A Heavy Drinking Consumption (4+ Female, 5+ Male)? 0 Information not available 03/21/2013 Are There Any Guns Present In Your Home? No Information not available 01/20/2015 Do You Use Insect Repellent Routinely? Yes Information not available 04/13/2022 Live Alone Or With Others? With Others Partner/kailey parham Information not available 02/11/2014 Patient Has Health Care Proxy Signed And In Chart No Information not available 04/24/2012 Marital Status Domestic Partner Information not available 04/24/2012 Mosquito Repellent Used Routinely Yes Information not available 01/20/2015 What Was The Date Of Your Most Recent Tobacco Screening? 07/23/2023 05/24/23 [email or web address] Information not available 07/23/2023 How Many Children Do You Have? 1 Daughter B '03 Information not available 04/24/2012 Do You Use Your Seat Belt Or Car Seat Routinely? Yes Information not available 04/13/2022 Seat Belts Used Routinely Yes [email or web address] Information not available 01/20/2015 Are You Sexually Active? Yes Information not available 04/24/2012 Smoke Alarm In Home Yes Information not available 01/20/2015 Do You Have Smoke And Carbon Monoxide Detectors In Your Home? Yes Information not available 04/13/2022 Are You Passively Exposed To Smoke? No Information not available 04/13/2022 How Much Tobacco Do You Smoke? No Information not available 03/24/2020 What Types Of Sporting Activities Do You Participate In? No Information not available 05/20/2018 General Stress Level Low Information not available 05/20/2018 Do You Use Sunscreen Routinely? Yes Information not available 01/20/2015 How Many Years Have You Smoked Tobacco? 0 Information not available 03/24/2020 Sex: Male Functional Status Question Answer Note LastModified by Organizat ion Details LastModified Time Do you use any illicit or recreational drugs? No Information not available 04/13/2022 What is your level of alcohol consumption? Occasional 1/year. no hx abuse 03/14/21 AG, 05/24/23mh [email or web address] Information not available 2023 Do you or have you ever used smokeless tobacco? 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 Never used electronic cigarettes Information not available 03/24/2020 What is your exercise level? Occasional Information not available 04/13/2022 Mental Status None recorded. Family History Relationship Description Onset Age of this Age Resolved Age Notes LastModified by Organization Details LastModified Time Father Myocardial infarction 75 [email or web address] Not available 03/14 14:51:32 Father Cirrhosis of liver alcoho l [email or web address] Not available 07/23/2023 09:51:03 Mother Cirrhosis of liver Non-al coholi c [email or web address] Not available 07/23/2023 09:50:52 Sister Essential hypertension Not available 09:51:20 Brother Essential hypertension [email or web address] Not available 09:51:20 Medical History No medical history recorded. Immunizations Vaccine Type Date Status Note Provider Nam e and Address Organization Details Recorded Time Td(adult) unspecified formulation 6 completed Not Available [facility] 01/18/2011 05:21:29 Influenza, split virus, trivalent, PF 4 completed Not Available [facility] 03/22/2019 02:19:01 Influenza, split virus, quadrivalent, PF 5 completed Not Available [facility] 03/22/2019 02:30:31 Influenza, split virus, quadrivalent, PF 6 completed Not Available [facility] 03/22/2019 02:35:34 Tdap 6 completed Not Available [facility] 03/22/2019 02:21:10 Influenza, split virus, quadrivalent, PF 8 completed Not Available [facility] 03/22/2019 02:22:32 Influenza, split virus, quadrivalent, PF 2 completed Kinjal Gladu, WINDOWS [employer] DE[employer]OYMENT LEAD null, [facility] 03/14/2021 14:25:09 Influenza, split virus, quadrivalent, PF 3 completed MARE RIVER PA-C [address] [place] [address], [phone], [facility] 04/18/2022 18:18:14 Hep B, adult 4 completed Nidia Sanchez RN null, [facility] 07/27/2023 15:14:07 Hep B, adult 4 completed Nidia Sanchez RN null, [facility] 08/24/2023 15:03:48 Hep B, adult 4 completed Kinjalsola Fuentes, WINDOWS [employer] DEPLOYMENT LEAD null, [facility] 11/23/2023 15:40:45 COVID-19, mRNA, LNP-S, PF, 30 mcg/0.3 mL dose 1 completed Kinjal Fuentes, W[employer]OWS [employer] DE[employer]OYMENT LEAD null, [facility] 03/14/2021 14:10:34 COVID-19, mRNA, LNP-S, PF, 30 mcg/0.3 mL dose 1 completed Kinjalsola Fuentes, WINDOWS [employer] DEPLOYMENT LEAD null, [facility] 03/14/2021 14:10:42 Past Encounters Encounter ID Performer Location Encounter Start Date Encounter Closed Date Diagnosis/Indication Diagnosis SNOMED-CT Code Diagnosis ICD10 Code Diagnosis Note [id number] Jeanette BERGMAN, [facility] [place] [address] [place] [address] 12/19/2005 13:51:06 12/19/2005 16:33:50 [id number] [facility] [place] [facility] [place] [id number] 12/21/2005 07:16:32 12/21/2005 07:16:36 [id number] Jeanette BERGMAN, [facility] [place] [address] [place] [address] 02/05/2006 09:26:22 02/05/2006 10:45:37 [id number] [facility] [place] [facility] [place] [id number] 02/05/2006 09:49:45 02/05/2006 09:49:52 [id number] [facility] Radiology , [facility] [address] [place] [id number] 03/02/2006 09:36:37 03/02/2006 12:39:03 [id number] [facility] [place] [facility] [address] [place] [id number] 06/05/2006 14:26:16 06/05/2006 14:26:23 [id number] Jeanette MENEZES , [facility] [place] [address] [place] [id number] 06/05/2006 13:11:37 06/05/2006 15:14:24 [id number] MD PACHECO Maza, [facility] [place] [address] [place] [id number] 07/10/2006 14:10:06 07/11/2006 15:46:47 [id number] [facility] [place] [address] [place] [id number] 07/10/2006 14:56:48 07/10/2006 14:56:59 [id number] Jeanette MENEZES , [facility] [place] [address] [place] [address] [place] [address] 07/26/2006 14:51:17 07/26/2006 17:06:04 [id number] Octaviano Flores PA-C , [facility] [place] [address] [place] [address] [place] [id number] 12/23/2007 16:02:07 12/25/2007 11:36:42 [id number] [facility] [place] [address] [place] [id number] 12/24/2007 09:14:39 12/24/2007 09:14:54 [id number] Jaleel Nagel MD , [facility] [place] [address] [place] [id number] 04/24/2012 13:40:56 04/24/2012 16:02:05 [id number] Sania Linares MD Radiology , [address] [place] [id number] 04/25/2012 15:22:27 04/26/2012 10:02:17 [id number] Jaleel Nagel MD , [facility] [place] [address] [place] [id number] 09/10/2012 07:51:58 09/10/2012 08:26:21 [id number] Jaleel Nagel MD , [facility] [place] [address] [place] [address] 03/21/2013 07:54:07 03/21/2013 08:21:35 Adult health examination 262619378 Benign exam. Screening utd Counseling 248295104 Influenza vaccine needed 0454558005 106 Liver func tion tests outside reference range 276176806 elev last yr but then normalized . repeat LFTs and copy GI, who he sees in 2 wks. [id number] Octaviano Flores PA-C , [facility] [place] [address] [place] [address] 02/11/2014 15:08:05 02/11/2014 15:52:00 Liver function tests outside reference range 330297280 Elev in past but w/u nl. Will check this year and annually Ganglion of joint 71011519 drained/in jected. return if recurs [id number] Octaviano Flores PA-C , [facility] [address] [place] [id number] 01/20/2015 15:00:14 01/20/2015 16:08:26 Adult health examination 895725145 Z00.00 Benign exam Counseling 690265265 Z71 .9 Active or passive immunization 394212624 Z23 Liver func tion tests outside reference range 658052380 R94.5 Elev in past but w/u nl. Will check this year and annually Apnea 1342608 R06.81 noted by juan. For sleep study [id number] Jaleel Nagel MD , [facility] [place] [address] [place] [address] 11/10/2015 10:51:12 11/10/2015 11:33:25 Active or passive immunization 813498290 Z23 Pain of mu ltiple joints 47221219 M25.50 Known tick bites. Will check some labs and start abx. [id number] Vladimir Valdez MD , [facility] [place] [place] [address] [place] [address] 01/13/2016 08:54:50 01/13/2016 10:56:31 Bronchitis 69615492 J40 Patient with clinical presentati on of bronchitis in a setting of viral upper respirator y infection. No benefit of antibiotic treatment discussed. No hemodynami c instabilit y. Supportive care with ample oral hydration and rest discussed. Advised on nasal saline irrigation , decongesta nt, and NSAID use. Also recommende d OTC cough medication . Will treat with Albuterol prn. Advised to contact the clinic if no improvemen t in 3-4 days. Indication s for UC/ER use discussed. [id number] Santiago Bonds MD , [facility] [place] [place] [address] [place] [address] 01/25/2016 14:54:34 01/25/2016 15:39:15 Adult health examination 025857028 Z00.00 Benign exam Counseling 836632332 Z71 .9 Active or passive immunization 819489344 Z23 Bronchitis 83250282 J40 Mild- improving. Ok to continue albuterol prn [id number] Jaleel Nagel MD , [facility] [place] [address] [place] [address] 04/12/2017 14:41:50 04/13/2017 08:41:31 Knee pain 12990342 M25.562 seems like soft tissue contusion. no joint effusion. AE wrap/ice/i buprofen 600mg tid. Return if worsening [id number] Jaleel Nagel MD , [facility] [place] [place] [address] [place] [address] 05/16/2017 08:27:21 05/16/2017 08:58:58 Adult health examination 335010557 Z00.00 Exam benign Counseling 265353101 Z71 .9 Depression screening 171 833765 Z13.89 depression screening tool administer ed, entered into emr, scored and discussed, time greater than 7.5 minutes Active or passive immunization 129835657 Z23 Liver func tion tests outside reference range 263575601 R94.5 Elev in past but w/u nl. Will check this year and annually Knee pain 48628466 M25.5 62 seems like prepatella r inflammati on. no joint effusion Return if worsening [id number] Santiago Bonds MD , [facility] [place] [place] [address] [place] [address] 05/20/2018 08:23:16 05/20/2018 09:24:19 Adult health examination 800539347 Z00.00 Stable health. Encouraged healthy diet, regular exercise and continue to work on weight reduction. Encouraged regular dental and eye exams. Depression screening 171 150549 Z13.89 06/29. Mood has been stable. depression screening tool administer ed, entered into emr, scored and discussed, time greater than 7.5 minutes Liver func tion tests outside reference range 766170013 R94.5 Mildly Elev in past but w/u nl. Will check this year and annually Counseling 750628430 Z71 .9 Vasectomy requested 1839 [address] Bailey to discuss vasectomy. Handout given. Obstructiv e sleep apnea syndrome 08509111 G47.33 Uses CPAP intermitte ntly. Discussed the importance of regular use and risks associated with untreated PENNY. [id number] Lashell Davis . , [facility] [place] [place] [address] [place] [address] 03/24/2020 15:05:00 03/26/2020 16:29:49 Adult health examination 782921249 Z00.00 USPSTF guidelines reviewed and discussed with patient. Will update Flu shot Counseling 125566722 Z71 .9 Diet and exercise reviewed. Family and social interactio ns reviewed. Safety and injury prevention reviewed. Stress management reviewed. Depression screening 171 596333 Z13.89 depression screening tool administer ed, entered into emr, scored and discussed, time greater than 7.5 minutes Screening for alcohol abuse 053004209 Z13.39 An audit alcohol screening test was performed and scored. Patient was asked about alcohol use, advised about risks of alcohol, and personal risk was assessed. No Alcohol misuse noted. . Discussion including screening and scoring greater than 7.5 minutes [id number] Santiago Bonds MD , [facility] [place] [place] [address] [place] [address] 03/14/2021 13:39:02 03/14/2021 14:58:22 Active or passive immunization 883786696 Z23 Elevated blood-pressure reading without diagnosis of hypertension 586915369 R03.0 Discussed option of starting medication . Declines today. Will check labs. Monitor at home and bring readings to follow up in 3 weeks. Goal <130/80. If BP remains above goal would suggest starting medication . Continue to work on healthy diet and regular exercise. Family his tory of Cardiovascular disease 606506373 Z82.49 Check lipids. [id number] Santiago Bonds MD , [facility] [place] [place] [address] [place] [address] 04/04/2021 16:04:16 04/06/2021 14:17:20 Elevated blood-pressure reading without diagnosis of hypertension 291971049 R03.0 Bp just at/above goal. Goal <130/80. Prefers not to take medication . Continue to work on healthy diet and regular exercise. Encouraged to monitor at home. If BP remains closer to 140/90 would advise medication . Discussed dietary modificati ons. Multiple a xillary skin tags 362976228 D23.[address] [id number] Roland Orellana MD , [facility] [place] [place] [address] [place] [address] 12/16/2021 09:13:13 12/16/2021 11:31:46 Pain in testicle 23127948 N50.890 [id number] Lashell Davis . , [facility] [place] [place] [address] [place] [address] 04/13/2022 09:36:21 04/13/2022 11:00:40 Adult health examination 622137657 Z00.00 BP at qojt1dz [place] orderedUpd ate labsFlu shot todayDiscu ssed ShingrixDe clines covid booster shotsDenti st- needs f/u, encouraged F/u 1mo Depression screening 171 587522 Z13.31 depression screening tool administer ed, 09/28 Screening for alcohol abuse 161178542 Z13.39 Alcohol use screening tool administer ed, Screening for malignant neoplasm of colon 171698493 Z12.11 Referral for a DIRECT booked colonoscop y. This patient is a healthy ASA Class 1 or 2 patient (only mild systemic disease), or a STABLE, well controlled insulin dependent diabetic. They do not have serious cardiac disease ie DE/angiopl asty within 1 year, symptomati c CHF; renal failure with CKD 4 or 5; take Coumadin, Plavix, Aggrenox, etc. Active or passive immunization 388661764 Z23 Obstructiv e sleep apnea syndrome 13029832 G47.33 Used cpap before, but stopped, couldnt sleep with maskReferr ed back to sleep med Palpitations 64293106 R0 0.2 Palps w/i last year x4 times w/o associated symptoms, few secondsSus pect PVCs, PE normalF/u if recurs for considerat ion of monitor Elevated blood-pressure reading without diagnosis of hypertension 782821386 R03.0 Pt reports occasional elevated readings at homeIs at goal in office todayMonit or x 1 monthF/u 1mo to ensure at goalNo anti HTN medication Low back pain 886190194 M54.50 Cyst of epididymis 60328 002 N50.3 R sided4 mm epididymal cystScrota l Discomfort occasional ly [id number] Santiago Bonds MD , [facility] [place] [address] [place] [address] 05/03/2022 10:45:18 05/03/2022 11:36:26 Cervical lymphadenopathy 446617974 R59.0 he noted itchy face and a burning itchy clothes sensitivit y under the left side of the neck opening of his Steven shirt also felt fullness and stiffness left side of neck and noted a swelling under the earhe feels well no difficulti es eating , chewing, no fatigue or fever or weakness , no otic symptoms, no oral symptomson examis the large mass 1.5 x 3 inches vertically placed ovate firm , mildly tender, no rubor or calor presentund er the ear , posterior to jaw ramus , angle of the jaw and parotid and subman areas palpate normally. there is no opening or drainageor opharynx and ear are clearno other neck or thyroid or suipraclav icular masses there are streaky patches of MP redness as if shingles from manubrium left neck base on left sparing folds and a small area parietal area above left ear the rash is so typically herpetic and associated likely LN is c/w Left C4 HVZ,the associated presumptiv e Lymphadeno [athy is dramatic tho i have seen this in HSVhe is not knpwn to be immune deficient rx valtrex 1g BIDultraso und the neck massi asked him to rto should new or worsenned symptoms arrve [id number] [facility], [facility] [address] [place] [id number] 05/22/2022 09:33:49 05/23/2022 08:27:46 Low back pain 582128475 M54.50 [id number] [facility], [facility] [address] [place] [id number] 05/29/2022 09:59:35 05/29/2022 10:28:07 Low back pain 121607177 M54.50 [id number] [facility], [facility] [address] [place] [id number] 06/05/2022 08:30:22 06/05/2022 10:30:05 Low back pain 820629104 M54.50 [id number] Thomas Johnson MD , [facility] [place] [place] [address] [place] [address] 10/16/2022 08:01:30 10/16/2022 08:52:03 Electrocardiogram abnormal 281564415 R94.31 [id number] Lashell Davis . MD BERGMAN, [facility] [place] [address] [place] [address] 11/09/2022 07:55:20 11/09/2022 08:40:15 Electrocardiogram abnormal 821411278 R94.31 Nov 13 Stress testSept 19 [facility]/u scheduled thereafter red flags to ED in interim discussed Elevated blood-pressure reading without diagnosis of hypertension 945069199 R03.0 Pt reports occasional elevated readings at homeIs at goal in office todayMonit or x 1 monthNo anti HTN medication will have f/u end of month [id number] Lashell Davis . MD BERGMAN, [facility] [place] [address] [place] [address] 12/11/2022 07:58:12 12/11/2022 11:14:30 Cardiovascular stress test abnormal 749445266 R94.39 Echo- ? apical HCMStress test- apical ischemia vs apical HCM pt states Saw [place] cards- who Ordered an MRI, scheduled Jan 31, did not start any medsdo not have these records, requested per staffto ED for any red flags as again reviewed [id number] Ray Bravo MD , [facility] [place] [address] [place] [address] 2023 11:04:12 2023 12:14:06 Adult health examination 391843600 Z00.00 rec optometry appt, never had Depression screening 171 594406 Z13.31 depression screening tool administer ed Screening for alcohol abuse 429067505 Z13.39 Alcohol use screening tool administer ed--no signs depression Obstructiv e sleep apnea syndrome 53472047 G47.33 enc use of cpap regularly, can be partially resposible for BP elevation Hypertroph ic cardiomyopathy 948324754 I42.2 awaiting consult [place] next month Mixed hyperlipidemia 267 861894 E78.2 recheck, healthy eating Hepatitis C screening 41 4853755 Z11.59 no record of being tested Obesity 353094603 E66.9 continue healthy eating, exercise [id number] Radha Lisa , [facility] [place] [address] [place] [address] 07/23/2023 08:11:24 07/23/2023 10:06:56 Active or passive immunization 428216262 Z23 shingles - reminded Metabolic dysfunction-associate d steatohepatitis 628702432 K75.81 - discussed role of weight loss and low fat diet in improving liver function- does not drink - continue to avoid alcohol- will check immune status for Hep A and Hep B- referral to GI for persistent elevation, and his mother passed from MENDOZA cirrhosis- LDL in 120s, not on statin- discussed Vitamin E supplement Benign pro static hyperplasia 503231897 N40.0 - discussed decreasing caffeine intake, no liquids after dinner unless needed- double voiding, timed voiding- declines medication s for now [id number] MD PACHECO Schaefer, [facility] [place] [address] [place] [address] 07/27/2023 15:03:20 07/27/2023 15:45:44 Active or passive immunization 836272200 Z23 [id number] MD PACHECO Schaefer, [facility] [place] [address] [place] [address] 08/24/2023 14:46:22 08/24/2023 15:17:42 Active or passive immunization 497683995 Z23 [id number] Maribel Louis NP , [facility] [place] [place] [address] [place] [address] 11/23/2023 15:15:00 11/23/2023 15:40:54 Active or passive immunization 360634370 Z23 Health Concerns Section Related Observation LastModified by Organization Detai ls LastModified Time None Recorded Concern Status LastModified by Organization Details LastModified Time None Recorded Advance Directives Directive None Recorded Payers Encounter Date Sequence Insurance Name Policy Number Policy Saravia Covered Member ID Saravia Member ID Guarantor Name [address] [facility] (O) [id number] Domo A Millan [id number] Domo A Millan 07/23/2023 1 [facility] [employer] (HMO) [id number] Domo A Millan [id number] Domo A Millan 07/27/[address] [facility] (O) [id number] Domo A Millan [id number] Domo A Millan 08/24/[address] [facility] [employer] (HMO) [id number] Domo A Millan [id number] Domo A Millan 11/23/[address] [facility] (O) [id number] Domo A Millan [id number] Domo A Millan Notes Date Note Type Note Provider Name and Address Organization Details Recorded Time 05/24/19 24 text/htm l Physical Exam/MaleReported bypatient.PHAPatient is here for a Wellness Visit. He describes his health status as good. Patient's health is the same as last year.Risk Assessment and Lifestyle Change Counseling 18-50Reported bypatient.Diet:Counseled about appropriate portion size; Counseled about eating a diet low in trans and saturated fats and high in fiber, fruits and vegetables; Counseled about appropriate calcium intake and good dietary sources of calcium.; Counseled about the importance of maintaining a positive calcium balance and taking 1000 iu Vitamin D daily.; Counseled about decreasing carbohydrates; Counseled about decreasing salt in diet; Discussed the value of a Mediterranean diet, and eating more fruits and vegetables Exercise counseling:Discussed the importance of daily physical activity; Discussed the importance of weight bearing exercise Safety:Counseled about home safety including use of smoke detectors, CO detectors, keeping home water temperature less than 120; Counseled about use of seat belts; An audit alcohol screening was performed and scored. Patient was asked about alcohol use. Advised about risks of alcohol and personal risk was assessed. Patient agreed to plan and given information about available resources if needed. Discussion including screening and scoring greater than 7.5 minutes.Risk Assessment and Lifestyle Change Counseling 50-64Reported bypatient.Coronary Artery Disease Risk Assessment:Family History of Coronary Artery Disease; No personal history of diabetes; No history of peripheral vascular disease, AAA, or carotid disease; No personal history of coronary artery disease Colon Cancer Risk Assessment:No family history of colon polyps or cancer; No history of adenomatous colon polyps Lung Cancer Risk Assessment:Never smoked; No asbestos exposure Fracture Risk Assessment:No unexplained fracture Cognitive/Behavioral Risk Assessment:No personal history of mental illness;Family history of mental illness Safety Risk Assessment:No evidence of abuse/neglect Diet:Counseled about eating a diet low in trans and saturated fats and high in fiber, fruits and vegetables Exercise counseling:Discussed the importance of daily physical activity BP- sometimes high--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 apical ischemia. Per MRI apical cardiomyopathy. Pending appt in [place] for consult. 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
== END ==
LOC: HO.CARD 07:36
PROVIDERS: Visit Provider Internal Medicine
DX: I42.2 Other hypertrophic cardiomyopathy (principal)
CPT/HCPCS: 93242

== ENCOUNTER → 2024-08-04 07:40 | Outpatient (BNV) | payer OTHER, SELFPAY | PROVIDERS: Visit Provider Internal Medicine Cardiovascular Disease | DX: I47.10 Supraventricular tachycardia, unspecified (principal) | CPT/HCPCS: 93244 ==

== ENCOUNTER 2024-08-14 14:02 | Outpatient (AMB) | payer OTHER, SELFPAY ==
--- NOTE | 2024-08-14 14:30 | MHC.OFFVIS ---
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 He originally had an EKG for preop colonoscopy which was abnormal. That led to an echocardiogram/stress test with the eventual diagnosis of apical hypertrophic cardiomyopathy. With extreme activity, he can get some shortness of breath but otherwise fine for the most part. 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 He was seen at the hypertrophic cardiomyopathy center in [place] last year. No specific interventions recommended. With regard to family history, son was apparently diagnosed as Chagas disease in [facility] [place] but it seems that he might actually have a similar problem, but not very clear. [facility] Family History Father Heart problem Mother Liver problem Social History Alcohol intake: current Alcohol intake frequency: holidays/special occasions only Patient Tobacco Use Status: Never used Tobacco Review of Systems Const Denies chills, Denies fatigue, Denies fever(s), Denies frequent falls, Denies weakness, Denies weight gain and Denies weight loss ENT Denies dizziness Card Denies chest pain, Denies leg edema, Denies lightheadedness, Denies palpitations, Denies dyspnea and Denies dyspnea on exertion Resp Denies cough, Denies dyspnea and Denies dyspnea on exertion GI Denies hematochezia Musc Denies abnormal gait, Denies muscle weakness, Denies numbness, Denies radiating pain into limb and Denies tingling Neuro Denies abnormal gait, Denies dizziness, Denies frequent falls, Denies numbness, Denies tingling and Denies weakness Endo Denies fatigue and Denies palpitations Physical Exam Vital Signs: Last Vital Signs Pulse 90 08/14/24 14:32 BP 130/64 08/14/24 14:32 BMI result Body Mass Index 35.0 Const General: comfortable and no acute distress Orientation/consciousness: patient oriented x3 HEENT Other: Unremarkable Head: Yes normal to inspection Neck Neck: Yes normal visual inspection Chest Chest palpation & inspection: normal inspection of the chest Resp Auscultation: clear to auscultation bilaterally Cardio Palpation: normal PMI Heart sounds: S1 normal heart sound present, S2 normal heart sound present, no gallops, Murmur heart sound present systolic II/ and no rubs GI Palpation (GI): Soft to palpation Back/Spine/Pelvis Other: unremarkable Skin General skin exam: no rashes or lesions noted Neuro General: patient oriented x3 Extrem General: Yes normal to inspection Psych Mental Status: mental status grossly normal Assessment & Plan Assessment & Plan (1) Apical variant hypertrophic cardiomyopathy: Code(s): I42.2 - Other hypertrophic cardiomyopathy Category: Medical Plan Cardiac studies reviewed. EKG shows sinus rhythm at 72/Min with somewhat diffuse T inversions but most prominent in the anterior leads. In the exercise stress test, able to do 10.8 METS with mild shortness of breath. Appropriate blood pressure response. In the perfusion component, thought to have had either apical ischemia or apical hypertrophic cardiomyopathy. In the echocardiogram, there is clear suggestion of apical hypertrophic cardiomyopathy. In the cardiac MRI, apical segments severely thickened to 2 cm; basal interventricular septum moderately thickened to 1.5 cm. Severely increased total myocardial mass. LVEF 61% RVEF 60%. Significant delayed enhancement reported at 28%. However, per specialists notes, LGE was recalculated as to be only about 7%. Holter shows underlying sinus rhythm with an average rate of 71/Min. No significant ectopy or other arrhythmias. Overall, apical variant hypertrophic cardiomyopathy. No overt clinical symptoms. Hence no specific medications. No indication for ICD either. He has had genetic screening done at [place] and that shows variant of unknown significance. Otherwise, no known clinically actionable alterations were detected. Recommendation [place] was to repeat an MRI in 3-5 years. Annual ambulatory monitoring, looking for NSVT. Intense physical activity to be avoided. We will plan on following up in one year. In the interim, he will call with concerns. Total time spent including review of data, counseling, documentation, coordination of care-31 minutes. Coding Level of Care Code Est Pt Level 4 (11624) Complex EM visit Add On G2211 Diagnoses Apical variant hypertrophic cardiomyopathy I42.2
[2024-08-14 14:32] VITALS: BP 130/64; PULSE 90; BMI 35.0
--- OUTSIDE RECORDS SUMMARY | 2024-08-14 16:33 | XMS_ITS | Data Portability ---
Author Organization [facility], , [facility] Address [address] [place] [address] Care Team Providers Care Software Designer Name Role Phone [facility] Strip Machine Operator MICHAEL MONTE Primary Care Provider Unavailabl e Assessment No assessment recorded. Plan of Treatment Reminders Order Date Submit Date Provider Last Modified By Organization Details Last Modified Time Details Appointments None recorded. Lab hepatitis A Ab panel 2023 024 [facility], [address] [place] [address], [address], 4 13:08:08 hepatitis B surface Ab, quantitat lindsey, serum 2023 024 [facility], [address] [place] [address], [address], 4 13:08:10 lipid panel, serum 2023 024 [facility], [address] [place] [address], [address], 4 13:29:25 hepatitis C Ab, serum [facility] [address] [place] [address], [address], 4 13:41:01 Referral gastroent erologist referral - fatty liver, fam hx of cirrhosis from [facility] 2023 024 [facility], [address] [place], [address], 4 14:13:03 Procedures None recorded. Surgeries None recorded. Imaging None recorded. Medication Orders None recorded. Patient TargetsNo targets recorded. Patient Instructions Encounter Date Encounter Id Patient Instructions Last Modified By Organization Details Last Modified Time 2023 [id number] Well Visit 50 to 65: Care Instructions [email or web address] Not available 2023 12:11:52 Reason for Referral Proposal Development Manager Referral for Metabolic dysfunction-associated steatohepatitis fatty liver, fam hx of cirrhosis from [facility] Referring Physician: Funmi Corona, Family Medicine, Encounter Date: 07/23/2023 Results Created Date Observation Date Name Description Value Unit Range Abnormal Flag Note LastModifiedBy Organization Detail LastModifiedTime 05/25/19 24 05/25/2023 COMP. METAB OLIC PANEL glucose 88 mg/dL 70-100 Not Available [address], [address], 05/25/2023 13:29:24 05/25/19 24 05/25/2023 COMP. METAB OLIC PANEL BUN 15 mg/dL 7-18 Not Available [address], [address], 05/25/2023 13:29:24 05/25/19 24 05/25/2023 COMP. METAB OLIC PANEL creatinine 0.9 mg/dL 0.8-1. 3 Not Available [address], [address], 05/25/2023 13:29:24 05/25/19 24 05/25/2023 COMP. METAB OLIC PANEL B/C 16.7 ratio Not Available [address], [address], 05/25/2023 13:29:24 05/25/19 24 05/25/2023 COMP. METAB [...] be used in pregn wilfred. Not Available [address], [address], 05/25/2023 13:29:24 05/25/19 24 05/25/2023 COMP. METAB OLIC PANEL sodium 142 mmol/ L 136-14 5 Not Available [address], [address], 05/25/2023 13:29:24 05/25/19 24 05/25/2023 COMP. METAB OLIC PANEL potassium 4.7 mmol/ L 3.5-5. 1 Not Available [address], [address], 05/25/2023 13:29:24 05/25/19 24 05/25/2023 COMP. METAB OLIC PANEL chloride 103 mmol/ L 96-107 Not Available [address], [address], 05/25/2023 13:29:24 05/25/19 24 05/25/2023 COMP. METAB OLIC PANEL anion gap 8.1 5.0-15 .0 Not Available [address], [address], 05/25/2023 13:29:24 05/25/19 24 05/25/2023 COMP. METAB OLIC PANEL CO2 31 mmol/ L 21-32 Not Available [address], [address], 05/25/2023 13:29:24 05/25/19 24 05/25/2023 COMP. METAB OLIC PANEL calcium 8.7 mg/dL 8.5-10 .3 Not Available [address], [address], 05/25/2023 13:29:24 05/25/19 24 05/25/2023 COMP. METAB OLIC PANEL total protein 7.2 g/dL 6.4-8. 2 Not Available [address], [address], 05/25/2023 13:29:24 05/25/19 24 05/25/2023 COMP. METAB OLIC PANEL albumin 4.2 g/dL 3.4-5. 0 Not Available [address], [address], 05/25/2023 13:29:24 05/25/19 24 05/25/2023 COMP. METAB OLIC PANEL globulin 3.0 g/dL Not Available [address], [address], 05/25/2023 13:29:24 05/25/19 24 05/25/2023 COMP. METAB OLIC PANEL A/G 1.4 ratio 0.8-2. 0 Not Available [address], [address], 05/25/2023 13:29:24 05/25/19 24 05/25/2023 COMP. METAB OLIC PANEL total bilirubin 1.10 mg/dL 0.00-1 .00 high Not Available [address], [address], 05/25/2023 13:29:24 05/25/19 24 05/25/2023 COMP. METAB OLIC PANEL AST 56 U/L 0-37 high Not Available [address], [address], 05/25/2023 13:29:24 05/25/19 24 05/25/2023 COMP. METAB OLIC PANEL ALT 135 U/L 6-63 high Not Available [address], [address], 05/25/2023 13:29:24 05/25/19 24 05/25/2023 COMP. METAB OLIC PANEL alk. phos. 67 U/L 50-136 Not Available [address], [address], 05/25/2023 13:29:24 05/25/19 24 05/25/2023 LIPID PANEL cholesterol 186 mg/dL <200 mg/dl Sho able 200-2 39 mg/dl Borde rline High >240 mg/dl High Not Available [address], [address], 05/25/2023 13:29:25 05/25/19 24 05/25/2023 LIPID PANEL triglyceride s 101 mg/dL <150 mg/dL Danni l 150-1 99 mg/dL Borde rline High 200-4 99 mg/dL High >500 mg/dL Very High Not Available [address], [address], 05/25/2023 13:29:25 05/25/19 24 05/25/2023 LIPID PANEL direct HDL 45 mg/dL <40 mg/dl - Major Risk for CHD >60 mg/dl - Negat lindsey Risk for CHD Not Available [address], [address], 05/25/2023 13:29:25 05/25/19 24 05/25/2023 LDL - [...] r is not nectonya yessenia. Not Available [address], [place], [address], 05/25/2023 13:29:26 05/25/19 24 05/26/2023 HEPAT ITIS [...] a test for HCV RNA (test code 07448 ) is sugge sted. For addit ional infor mattammy n lauren e refer to http: //[employer] cat n.que stdia gnost ics.c om/fa q/FAQ 22v1 (This link is being provi ded for infor matio nal/ educa david l purpo ses only. ) Not Available [facility] [address], [address], 05/26/2023 04:48:42 07/23/19 24 07/24/2023 HEPAT ITIS A AB, TOTAL hepatitis A Ab, total REACTI VE non-re active abnormal For addit ional infor lauren singh e refer to http: //[employer] cattammy n.que stdia gnost ics.c om/fa q/FAQ 202 (This link is being provi ded for infor matio nal/ educa david l purpo ses only. ) Not Available [facility] [address], [address], 07/24/2023 13:08:08 07/23/19 24 07/24/2023 HEPAT ITIS [...] ses only) . Not Available [facility] [address], [place], [address], 07/24/2023 13:08:10 07/23/19 24 10/12/2022 colon oscop y proce dure (PROC ) No observ ation record ed. [email or web address] Not Available 2023 08:24:41 Result Notes None recorded. Problems Name Problem SNOMED Code Status Onset Date Resolution Date Notes Provider Name and Address Organization Details Recorded Time Obstruct lindsey sleep apnea syndrome 00024193 Active 2017 Octaviano Flores PA-C [address] [place] [address], [address] , [facility] 8 08:49:22 Hypertro phic cardiomy opathy 294415387 Active 2023 Cardiac MRI 04/2023, apical variant Funmi Corona PA-C [address] [place] [address], [address] , [facility] 4 08:03:28 Obesity 570186225 Active 2023 Ray Bravo MD [address] [place] [address], , [facility] 4 12:07:27 Mixed hyperlip idemia 457461593 Active 2023 Ray Bravo MD [address] [place] [address], , [facility] 4 12:07:45 Metaboli c dysfunct ion-asso ciated steatohe patitis 029245647 Active 2023 Maribel Alexander MD [address] [place] [address], [address] , [facility] 4 16:22:44 Clinical finding Completed 200501/22/2013 Not Available [facility] 3 02:04:02 Gastrodu odenitis 921076614 Completed 200601/20/2015 Octaviano Flores PA-C [address] [place] [address], [address] , [facility] 5 15:51:24 Liver function tests outside referenc e range 843704184 Active 2005 Octaviano Flores PA-C [address] [place] [address], [address] , [facility] 5 16:01:36 Gastroes ophageal reflux disease 094058571 Completed 200501/20/2015 Octaviano Flores PA-C [address] [place] [address], [address] , [facility] 5 15:51:24 Abdomina l pain 79519083 Completed 200501/22/2013 Not Available [facility] 3 02:01:21 Chronic nonalcoh olic liver disease 78583881 Completed 200601/20/2015 Octaviano Flores PA-C [address] [place] [address], [address] , [facility] 5 15:51:24 Nausea and vomiting 86924114 Completed 200601/22/2013 Not Available [facility] 3 02:03:06 Elevated level of transami nase and lactic acid dehydrog enase 617238186 Completed 200501/20/2015 Octaviano Flores PA-C [address] [place] [address], [address] , [facility] 5 15:51:24 Gastriti s 6579444 Completed 200601/20/2015 Octaviano Flores PA-C [address] [place] [address], [address] , [facility] 5 15:51:24 Generali zed abdomina l pain 650173632 Completed 200601/22/2013 Not Available [facility] 3 02:02:06 Notes:[facility] 10/2022 normal, re peat 10 years Problem Notes None recorded. Procedures Surgical History Date Name Laterality Status Provider Name and Address Organization Details Recorded Time 06/06/19 63996: Manual Therapy completed Rito Cordon DPT [address] [place], [address], [facility] 06/05/2022 08:26:02 06/06/19 23 Neuromuscular re-education completed Rito Cordon DPT [address] [place] [address], [address], [facility] 06/05/2022 08:26:03 06/06/19 Treatment and Advice completed Rito Cordon DPT [address] [place], [address], [facility] 06/05/2022 08:56:45 05/30/19 17628: Manual Therapy completed Rito Cordon DPT [address] [place], [address], [facility] 05/29/2022 10:25:20 05/30/19 23 Neuromuscular re-education completed Rito Cordon DPT [address] [place], [address], [facility] 05/29/2022 10:25:29 05/30/19 23 Treatment and Advice completed Rito Corodn DPT [address] [place] [address], [address], [facility] 05/29/2022 10:25:00 05/23/19 23 Smoking Cessation Counselling completed Rito Cordon DPT [address] [place], [address], [facility] 05/22/2022 09:13:18 05/23/19 23 Physical Activity Counselling completed Rito Cordon DPT [address] [place], [address], [facility] 05/22/2022 09:13:18 05/23/19 23 28459: PT Eval Low Complexity completed Rito Cordon DPT [address] [place], [address], [facility] 05/22/2022 09:13:18 05/23/19 23 Treatment and Advice completed Rito Cordon DPT [address] [place], [address], [facility] 05/22/2022 16:53:50 04/04/19 22 Skin Tag Removal (up to 15) completed Harmony Albarran PA-C [address] [place] [address], [address], [facility] 04/05/2021 10:44:22 03/24/19 21 prevention-annual alcohol misuse screening completed Georgia Quick [facility] 03/24/2020 15:05:39 02/12/20 14 Ganglion Injection completed Octaviano Flores PA-C [address] [place] [address], [address], [facility] 02/11/2014 15:39:38 Imaging Results None recorded. Procedure [...] 138 mm[Hg] 78 mm[Hg] Ray Bravo MD [address] [place] [address], [address], [facility] 2023 12:08:43 Date Recorded Body height Body mass index (BMI) Body weight Heart rate Oxygen saturation Oxygen saturation in Arterial blood by Pulse oximetry Systolic blood pressure Diastolic blood pressure Provider Name and Address Organization Details Last Updated DateTime 4 161.29 cm 36.4 kg/m2 44847.0 1 g 74 /min 98 % 98 % 142 mm[Hg] 76 mm[Hg] Imani Mendoza [facility] 4 11:18:15 Date Recorded Body height Body mass index (BMI) Body weight Heart rate Systolic blood pressure Diastolic blood pressure Systolic blood pressure Diastolic blood pressure Provider Name and Address Organization Details Last Updated DateTime 4 161.29 cm 35.4 kg/m2 20139.9 5 g 80 /min 138 mm[Hg] 72 mm[Hg] 130 mm[Hg] 72 mm[Hg] Zenaida Daniels [facility] 4 08:22:16 Social History Question Answer Notes LastModified by Organizat ion Details LastModified Time Tobacco Smoking Status Never Smoker 03/14/21 AG 04/13/22tt8/06/25MV Vanesa Abdi, BINTA null, [facility] 10/16/2022 08:09:35 Do You Wear A Helmet [...] 1/year. no hx abuse 03/14/21 AG, 05/24/23mh [email or web address] Information not available 2023 Do you or [...] 14:51:32 Father Cirrhosis of liver alcoho l [email or web address] Not available 07/23/2023 09:51:03 Mother Cirrhosis of liver Non-al coholi c [email or web address] Not available 07/23/2023 09:50:52 Sister Essential hypertension Not available 09:51:20 Brother Essential hypertension [email or web address] Not available 09:51:20 Medical History No medical history recorded. Immunizations Vaccine Type Date Status Note Provider Nam e and Address Organization Details Recorded Time Td(adult) unspecified formulation 6 completed Not Available [facility] 01/18/2011 05:21:29 Influenza, split virus, trivalent, PF 4 completed Not Available [facility] 03/22/2019 02:19:01 Influenza, split virus, quadrivalent, PF 5 completed Not Available [facility] 03/22/2019 02:30:31 Influenza, split virus, quadrivalent, PF 6 completed Not Available [facility] 03/22/2019 02:35:34 Tdap 6 completed Not Available [facility] 03/22/2019 02:21:10 Influenza, split virus, quadrivalent, PF 8 completed Not Available [facility] 03/22/2019 02:22:32 Influenza, split virus, quadrivalent, PF 2 completed Kinjal Gladu, [employer] null, [facility] 03/14/2021 14:25:09 Influenza, split virus, quadrivalent, PF 3 completed MARE RIVER PA-C [address] [place] [address], [address], [facility] 04/18/2022 18:18:14 Hep B, adult 4 completed Nidia Sanchez RN null, [facility] 07/27/2023 15:14:07 Hep B, adult 4 completed Nidia Sanchez RN null, [facility] 08/24/2023 15:03:48 Hep B, adult 4 completed Kinjalsola Fuentes, [employer] null, [facility] 11/23/2023 15:40:45 COVID-19, mRNA, LNP-S, PF, 30 mcg/0.3 mL dose 1 completed Kinjal Fuentes, [employer] null, [facility] 03/14/2021 14:10:34 COVID-19, mRNA, LNP-S, PF, 30 mcg/0.3 mL dose 1 completed Kinjalsola Fuentes, [employer] null, [facility] 03/14/2021 14:10:42 Past Encounters Encounter ID Performer Location Encounter Start Date Encounter Closed Date Diagnosis/Indication Diagnosis SNOMED-CT Code Diagnosis ICD10 Code Diagnosis Note [id number] Jeanette BERGMAN, [facility], OFFICE [address] [place] [address] 12/19/2005 13:51:06 12/19/2005 16:33:50 [id number] [facility] - [facility] [address] [facility] [place] [id number] 12/21/2005 07:16:32 12/21/2005 07:16:36 [id number] Jeanette BERGMAN, [facility], OFFICE [address] [place] [address] 02/05/2006 09:26:22 02/05/2006 10:45:37 [id number] [facility] - [facility] [address] [facility] [place] [id number] 02/05/2006 09:49:45 02/05/2006 09:49:52 [id number] [facility] ULTRASOUND Technologi st Radiology , [facility] [address] [place] [id number] 03/02/2006 09:36:37 03/02/2006 12:39:03 [id number] [facility] - [facility] [address] [place] [id number] 06/05/2006 14:26:16 06/05/2006 14:26:23 [id number] Jeanette MENEZES , [facility], OFFICE [address] [place] [id number] 06/05/2006 13:11:37 06/05/2006 15:14:24 [id number] MD PACHECO Maza, [facility], OFFICE [address] [place] [id number] 07/10/2006 14:10:06 07/11/2006 15:46:47 [id number] [facility] - [address] [place] [id number] 07/10/2006 14:56:48 07/10/2006 14:56:59 [id number] Jeanette MENEZES , [facility], OFFICE [address] [place] [address] [place] [address] 07/26/2006 14:51:17 07/26/2006 17:06:04 [id number] Octaviano Flores PA-C , [facility], OFFICE [address] [place] [address] [place] [id number] 12/23/2007 16:02:07 12/25/2007 11:36:42 [id number] [facility] - [address] [place] [id number] 12/24/2007 09:14:39 12/24/2007 09:14:54 [id number] Jaleel Nagel MD , [facility], OFFICE [address] [place] [id number] 04/24/2012 13:40:56 04/24/2012 16:02:05 [id number] Sania Linares MD Radiology , [address] [place] [id number] 04/25/2012 15:22:27 04/26/2012 10:02:17 [id number] Jaleel Nagel MD , [facility], OFFICE [address] [place] [id number] 09/10/2012 07:51:58 09/10/2012 08:26:21 [id number] Jaleel Nagel MD , [facility], OFFICE [address] [place] [address] 03/21/2013 07:54:07 03/21/2013 08:21:35 Adult health examination 569546218 Benign exam. Screening utd Counseling 712855430 Influenza vaccine needed 5777564185 106 Liver func tion tests outside reference range 044072982 elev last yr but then normalized . repeat LFTs and copy GI, who he sees in 2 wks. [id number] Octaviano Flores PA-C , [facility], OFFICE [address] [place] [address] 02/11/2014 15:08:05 02/11/2014 15:52:00 Liver function tests outside reference range 246718699 Elev in past but w/u nl. Will check this year and annually Ganglion of joint 92824938 drained/in jected. return if recurs [id number] Octaviano Flores PA-C , [facility], OFFICE [address] [place] [id number] 01/20/2015 15:00:14 01/20/2015 16:08:26 Adult health examination 965024970 Z00.00 Benign exam Counseling 804667178 Z71 .9 Active or passive immunization 766683244 Z23 Liver func tion tests outside reference range 531812342 R94.5 Elev in past but w/u nl. Will check this year and annually Apnea 6479481 R06.81 noted by juan. For sleep study [id number] Jaleel Nagel MD , [facility], OFFICE [address] [place] [id number] 11/10/2015 10:51:12 11/10/2015 11:33:25 Active or passive immunization 979798088 Z23 Pain of mu ltiple joints 42748022 M25.50 Known tick bites. Will check some labs and start abx. [id number] Vladimir Valdez MD , [facility], OFFICE [address] [place] [address] 01/13/2016 08:54:50 01/13/2016 10:56:31 Bronchitis 20213107 J40 Patient with clinical presentati on of [...] days. Indication s for UC/ER use discussed. [id number] Santiago Bonds MD , [facility], OFFICE [address] [place] [address] 01/25/2016 14:54:34 01/25/2016 15:39:15 Adult health examination 713064294 Z00.00 Benign exam Counseling 023416484 Z71 .9 Active or passive immunization 207331522 Z23 Bronchitis 72045000 J40 Mild- improving. Ok to continue albuterol prn [id number] Jaleel Nagel MD , [facility], OFFICE [address] [place] [address] 04/12/2017 14:41:50 04/13/2017 08:41:31 Knee pain 38713569 M25.562 seems like soft tissue contusion. no joint effusion. AE wrap/ice/i buprofen 600mg tid. Return if worsening [id number] Jaleel Nagel MD , [facility], OFFICE [address] [place] [address] 05/16/2017 08:27:21 05/16/2017 08:58:58 Adult health examination 160997026 Z00.00 Exam benign Counseling 385266774 Z71 .9 Depression screening 171 308259 Z13.89 depression screening tool administer ed, entered into emr, scored and discussed, time greater than 7.5 minutes Active or passive immunization 594350933 Z23 Liver func tion tests outside reference range 856864719 R94.5 Elev in past but w/u nl. Will check this year and annually Knee pain 26092165 M25.5 62 seems like prepatella r inflammati on. no joint effusion Return if worsening [id number] Santiago Bonds MD , [facility], OFFICE [address] [place] [address] 05/20/2018 08:23:16 05/20/2018 09:24:19 Adult health examination 762844194 Z00.00 Stable health. Encouraged healthy diet, regular exercise and continue to work on weight reduction. Encouraged regular dental and eye exams. Depression screening 171 500736 Z13.89 06/29. Mood has been stable. depression screening tool administer ed, entered into emr, scored and discussed, time greater than 7.5 minutes Liver func tion tests outside reference range 759331172 R94.5 Mildly Elev in past but w/u nl. Will check this year and annually Counseling 806965318 Z71 .9 Vasectomy requested 1839 [address] Bailey to discuss vasectomy. Handout given. Obstructiv e sleep apnea syndrome 27315902 G47.33 Uses CPAP intermitte ntly. Discussed the importance of regular use and risks associated with untreated PENNY. [id number] Lashell Davis . , [facility], [address]ICE [address] [place] [id number] 03/24/2020 15:05:00 03/26/2020 16:29:49 Adult health examination 008029076 Z00.00 USPSTF guidelines reviewed and discussed with patient. Will update Flu shot Counseling 914976976 Z71 .9 Diet and exercise reviewed. Family and social interactio ns reviewed. Safety and injury prevention reviewed. Stress management reviewed. Depression screening 171 412801 Z13.89 depression screening tool administer ed, entered into emr, scored and discussed, time greater than 7.5 minutes Screening for alcohol abuse 780176175 Z13.39 An audit alcohol screening test was performed and scored. Patient was asked about alcohol use, advised about risks of alcohol, and personal risk was assessed. No Alcohol misuse noted. . Discussion including screening and scoring greater than 7.5 minutes [id number] Santiago Bonds MD , [facility], [address]ICE [address] [place] [address] 03/14/2021 13:39:02 03/14/2021 14:58:22 Active or passive immunization 774033524 Z23 Elevated blood-pressure reading without diagnosis of hypertension 117849211 R03.0 Discussed option of starting medication . Declines today. Will check labs. Monitor at home and bring readings to follow up in 3 weeks. Goal <130/80. If BP remains above goal would suggest starting medication . Continue to work on healthy diet and regular exercise. Family his tory of Cardiovascular disease 551110438 Z82.49 Check lipids. [id number] Santiago Bonds MD , [facility], [address]ICE [address] [place] [address] 04/04/2021 16:04:16 04/06/2021 14:17:20 Elevated blood-pressure reading without diagnosis of hypertension 198909874 R03.0 Bp just at/above goal. Goal <130/80. Prefers not to take medication . Continue to work on healthy diet and regular exercise. Encouraged to monitor at home. If BP remains closer to 140/90 would advise medication . Discussed dietary modificati ons. Multiple a xillary skin tags 844259220 D23.[address] [id number] Roland Orellana MD , [facility], OFFICE [address] [place] [id number] 12/16/2021 09:13:13 12/16/2021 11:31:46 Pain in testicle 31532571 N50.676 [id number] Lashell Davis . , [facility], [address]ICE [address] [place] [address] 04/13/2022 09:36:21 04/13/2022 11:00:40 Adult health examination 773723956 Z00.00 BP at oxwk1tq [facility] orderedUpd ate labsFlu shot todayDiscu ssed ShingrixDe clines covid booster shotsDenti st- needs f/u, encouraged F/u 1mo Depression screening 171 076644 Z13.31 depression screening tool administer ed, 09/28 Screening for alcohol abuse [id number] Z13.39 Alcohol use screening tool administer ed, Screening for malignant neoplasm of colon 256952560 Z12.11 Referral for a DIRECT booked colonoscop y. This patient is a healthy ASA Class 1 or 2 patient (only mild systemic disease), or a STABLE, well controlled insulin dependent diabetic. They do not have serious cardiac disease ie WI/angiopl asty within 1 year, symptomati c CHF; renal failure with CKD 4 or 5; take Coumadin, Plavix, Aggrenox, etc. Active or passive immunization 837441657 Z23 Obstructiv e sleep apnea syndrome 18133568 G47.33 Used cpap before, but stopped, couldnt sleep with maskReferr ed back to sleep med Palpitations 26659867 R0 0.2 Palps w/i last year x4 times w/o associated symptoms, few secondsSus pect PVCs, PE normalF/u if recurs for considerat ion of monitor Elevated blood-pressure reading without diagnosis of hypertension 145000360 R03.0 Pt reports occasional elevated readings at homeIs at goal in office todayMonit or x 1 monthF/u 1mo to ensure at goalNo anti HTN medication Low back pain 471465081 M54.50 Cyst of epididymis 46372 002 N50.3 R sided4 mm epididymal cystScrota l Discomfort occasional ly [id number] Santiago Bonds MD , [facility] [place] [address] [place] [address] 05/03/2022 10:45:18 05/03/2022 11:36:26 Cervical lymphadenopathy 521605329 R59.0 he noted itchy face and a [...] rto should new or worsenned symptoms arrve [id number] Nidia Mckee [facility], [facility] [address] [place] [id number] 05/22/2022 09:33:49 05/23/2022 08:27:46 Low back pain 149363926 M54.50 [id number] Nidia Mckee [facility] Therapy, [facility] [address] [place] [id number] 05/29/2022 09:59:35 05/29/2022 10:28:07 Low back pain 929081505 M54.50 [id number] Nidia Mckee Physical Therapy, [facility] [address] [place] [address] 06/05/2022 08:30:22 06/05/2022 10:30:05 Low back pain 949559141 M54.50 [id number] Thomas Johnson MD , [facility] [place], OFFICE [address] [place] [address] 10/16/2022 08:01:30 10/16/2022 08:52:03 Electrocardiogram abnormal 240294360 R94.31 [id number] Lashell Davis . MD BERGMAN, [facility] [place], OFFICE [address] [place] [address] 11/09/2022 07:55:20 11/09/2022 08:40:15 Electrocardiogram abnormal 215450171 R94.31 Nov 13 Stress testSept 19 [facility] [place]/u scheduled thereafter red flags to ED in interim discussed Elevated blood-pressure reading without diagnosis of hypertension 667103984 R03.0 Pt reports occasional elevated readings at homeIs at goal in office todayMonit or x 1 monthNo anti HTN medication will have f/u end of month [id number] Lashell Davis . MD BERGMAN, [facility] [place], OFFICE [address] [place] [address] 12/11/2022 07:58:12 12/11/2022 11:14:30 Cardiovascular stress test abnormal 062350893 R94.39 Echo- ? apical HCMStress test- apical ischemia vs apical HCM pt states Saw [place] cards- who Ordered an MRI, scheduled Jan 31, did not start any medsdo not have these records, requested per staffto ED for any red flags as again reviewed [id number] Ray Bravo MD , [facility] [place], [address]ICE [address] [place] [address] 2023 11:04:12 2023 12:14:06 Adult health examination 269643300 Z00.00 rec optometry appt, never had Depression screening 171 159141 Z13.31 depression screening tool administer ed Screening for alcohol abuse 263594719 Z13.39 Alcohol use screening tool administer ed--no signs depression Obstructiv e sleep apnea syndrome 70466514 G47.33 enc use of cpap regularly, can be partially resposible for BP elevation Hypertroph ic cardiomyopathy 935457846 I42.2 awaiting consult [place] next month Mixed hyperlipidemia 267 993709 E78.2 recheck, healthy eating Hepatitis C screening 41 0111384 Z11.59 no record of being tested Obesity 076977085 E66.9 continue healthy eating, exercise [id number] Radha Lisa , [facility] [place], OFFICE [address] [place] [address] 07/23/2023 08:11:24 07/23/2023 10:06:56 Active or passive immunization 745207049 Z23 shingles - reminded Metabolic dysfunction-associate d steatohepatitis 297284540 K75.81 - discussed role of weight loss and low fat diet in improving liver function- does not drink - continue to avoid alcohol- will check immune status for Hep A and Hep B- referral to GI for persistent elevation, and his mother passed from MENDO[place] cirrhosis- LDL in 120s, not on statin- discussed Vitamin E supplement Benign pro static hyperplasia 686564778 N40.0 - discussed decreasing caffeine intake, no liquids after dinner unless needed- double voiding, timed voiding- declines medication s for now [id number] MD PACHECO Schaefer, [facility] [place], [address]ICE [address] [place] [address] 07/27/2023 15:03:20 07/27/2023 15:45:44 Active or passive immunization 679653849 Z23 [id number] MD PACHECO Schaefer, [facility] [place], OFFICE [address] [place] [address] 08/24/2023 14:46:22 08/24/2023 15:17:42 Active or passive immunization 339131153 Z23 [id number] Maribel Louis NP , [facility] [place], [address]ICE [address] [place] [address] 11/23/2023 15:15:00 11/23/2023 15:40:54 Active or passive immunization 634632855 Z23 Health Concerns Section Related Observation LastModified by Organization Detai ls LastModified Time None Recorded Concern Status LastModified by Organization Details LastModified Time None Recorded Advance Directives Directive None Recorded Payers Insurance Date Sequence Insurance Name Policy Number Policy Saravia Covered Member ID Saravia Member ID Guarantor Name 11/23/2023 1 [facility] - [employer] (HMO) [id number] Domo Vega Millan [id number] Domo Vega Millan 11/23/2023 1 [facility] - [employer] (HMO) [id number] Domo Vega Millan [id number] Domo Vega Millan 11/23/2023 1 [facility] - [employer] (HMO) [id number] Domo Vega Millan [id number] Domo Vega Millan 11/23/2023 1 [facility] - DIRECT CONNECTORCARE TYPE I (HMO) Domo Gary Yana [id number] Domo A Millan 11/23/2023 [facility] E Domo Millan 1380.1 Domo Vega Millan 11/23/2023 1 [facility] - 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 apical ischemia. Per MRI apical cardiomyopathy. Pending appt in [place] for consult. 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
== END 2024-08-14 14:43 | disposition home or self-care (01) ==
LOC: HO.HCS 14:02
PROVIDERS: PCP Physician Assistant; Visit Provider Internal Medicine
DX: I42.2 Other hypertrophic cardiomyopathy (principal)
CPT/HCPCS: 99214; G2211

== ENCOUNTER → 2024-08-14 14:02 | Outpatient (BNVA) | payer OTHER, SELFPAY | PROVIDERS: PCP Physician Assistant; Visit Provider Internal Medicine | DX: I42.2 Other hypertrophic cardiomyopathy (principal) | CPT/HCPCS: 99212 ==